=== PATIENT | female | born 1980 | race American Indian/Alaskan Native ===

== ENCOUNTER 2016-09-15 06:15 | Emergency (ER) | payer OTHER ==
[2016-09-15] MEDS ORDERED: TYLENOL ONE (06:18)
[2016-09-15] MEDS ORDERED: TYLENOL PO ONE (06:23)
[2016-09-15 06:56] LABS: Basophils % (Auto) 0.8 % (0.0-1.8); Eosinophils % (Auto) 3.5 % (0.0-4.3); Hematocrit 35.8 % (30.3-42.9); Hemoglobin 11.5 gm/dl (10.1-14.3); Mean Corpuscular HGB Conc 32 % (30-34); Mean Corpuscular Hemoglobin 29 pg (28-32); Mean Corpuscular Volume 91 fl (79-97); Platelet Count 326 K/mm3 (140-440); Red Blood Count 3.93 M/mm3 (3.65-5.03); Red Cell Distribution Width 13.5 % (13.2-15.2); White Blood Count 7.3 K/mm3 (4.5-11.0)
[2016-09-15 07:07] LABS: INR 1.09 (0.87-1.13); Partial Thromboplastin Time 30.5 Sec. (24.2-36.6)
[2016-09-15 07:09] LABS: Anion Gap 16 mmol/L; Blood Urea Nitrogen 12 mg/dL (7-17); Calcium 8.5 mg/dL (8.4-10.2); Carbon Dioxide 23 mmol/L (22-30); Chloride 107.4 mmol/L (98-107); Glucose 100 mg/dL (65-100); Potassium 4.1 mmol/L (3.6-5.0); Sodium 142 mmol/L (137-145)
[2016-09-15] MEDS ORDERED: TORADOL IM ONE (09:49)
--- NOTE | 2016-09-15 09:50 | Emergency Department Report ---
ED Chest Pain HPI - General Chief Complaint: Chest Pain Stated Complaint: CHEST PAIN Time Seen by Provider: 09/15/16 09:39 Source: patient, RN notes reviewed, old records reviewed Mode of arrival: Ambulatory Limitations: No Limitations - History of Present Illness Initial Comments: This is a 36-year-old female. She is previously unknown speed. She reports a past medical history of asthma. She presents to the ER complaining of chest pain. Chest pain is in the left-sided chest wall. It is associated with neck pain. It increases with deep inspiration. There is mild shortness of breath. Patient reports chronic shortness of breath for the past 2 months. No recent trips greater than 4 hours. No recent hospital admissions. There is no leg pain. There is no leg swelling. The chest pain does not radiates to the back, arms, but does involve the neck. There is no cocaine use. MD Complaint: chest pain -: Gradual, days(s), month(s) Pain Location: left chest Pain Radiation: neck Severity: mild Severity scale (0 -10): 4 Quality: aching Consistency: intermittent Improves With: rest Worsens With: palpation re: dyspnea. denies: nausea, vomting, diaphoresis Other Symptoms: denies: cough, fever, syncope, rash, acid taste in mouth, leg swelling, palpitations, burping Treatments Prior to Arrival: none Aspirin use within the Past 7 Days: (0) No - Related Data On Oral Contraceptives: No Previous Rx's Medication Instructions Recorded Last Taken Type Albuterol Sulfate [Proventil HFA] 1 - 2 puff IH Q4H PRN #2 hfa.aer.ad 09/08/14 Unknown Rx Fluticasone/Salmeterol [Advair 1 - 2 puff IH BID #1 disk.w.dev 02/23/15 Unknown Rx Diskus 250-50 mcg] Ciprofloxacin HCl [Ciprofloxacin 500 mg PO Q12HR #14 tab 12/15/15 Unknown Rx TAB] traMADol [Ultram] 50 mg PO Q6HR PRN #14 tablet 12/15/15 Unknown Rx Fluconazole [Diflucan TAB] 150 mg PO ONCE #1 tablet 12/16/15 Unknown Rx LORazepam [Ativan] 1 mg PO Q8HR PRN #6 tablet 03/01/16 Unknown Rx traMADol [Ultram 50 MG tab] 50 mg PO Q6HR PRN #10 tablet 03/01/16 Unknown Rx Acetaminophen/Codeine [Tylenol #3] 1 tab PO Q6H PRN #7 tab 04/03/16 Unknown Rx Cephalexin [Keflex] 500 mg PO Q8HR #21 cap 04/03/16 Unknown Rx Diclofenac Sodium 75 mg PO BID #14 tablet.dr 04/03/16 Unknown Rx Sulfamethoxazole/Trimethoprim 1 each PO BID #14 tablet 04/03/16 Unknown Rx [Bactrim DS TAB] Ketorolac [Toradol] 10 mg PO Q6H PRN #20 tablet 09/15/16 Unknown Rx Allergies Allergy/AdvReac Type Severity Reaction Status Date / Time shellfish derived Allergy Swelling Verified 10/08/15 07:19 CASTRO score - Castro Score Age > 65: (0) No Aspirin use within the Past 7 Days: (0) No 3 or more CAD Risk Factors: (0) No 2 or more Angina events in past 24 hrs: (0) No Known CAD with more than 50% Stenosis: (0) No Elevated Cardiac Markers: (0) No ST Deviation Greater than 0.5mm: (0) No CASTRO Score: 0 ED Review of Systems ROS: Stated complaint: CHEST PAIN Other details as noted in HPI Constitutional: no symptoms reported Eyes: as per HPI ENT: as per HPI Respiratory: see HPI Cardiovascular: chest pain Gastrointestinal: as per HPI Genitourinary: as per HPI Musculoskeletal: as per HPI Skin: as per HPI Neurological: as per HPI Psychiatric: as per HPI Hematological/Lymphatic: as per HPI ED Past Medical Hx - Past Medical History Previous Medical History?: Yes Hx Congestive Heart Failure: No Hx Diabetes: No Hx Asthma: Yes Hx COPD: No - Surgical History Past Surgical History?: Yes Hx Appendectomy: Yes - Social History Smoking Status: Never Smoker Substance Use Type: None - Medications Home Medications: Home Medications Medication Instructions Recorded Confirmed Last Taken Type Albuterol Sulfate [Proventil HFA] 1 - 2 puff IH Q4H PRN #2 hfa.aer.ad 09/08/14 12/15/15 Unknown Rx Fluticasone/Salmeterol [Advair 1 - 2 puff IH BID #1 disk.w.dev 02/23/15 Unknown Rx Diskus 250-50 mcg] Ciprofloxacin HCl [Ciprofloxacin 500 mg PO Q12HR #14 tab 12/15/15 Unknown Rx TAB] traMADol [Ultram] 50 mg PO Q6HR PRN #14 tablet 12/15/15 Unknown Rx Fluconazole [Diflucan TAB] 150 mg PO ONCE #1 tablet 12/16/15 Unknown Rx LORazepam [Ativan] 1 mg PO Q8HR PRN #6 tablet 03/01/16 Unknown Rx traMADol [Ultram 50 MG tab] 50 mg PO Q6HR PRN #10 tablet 03/01/16 Unknown Rx Acetaminophen/Codeine [Tylenol #3] 1 tab PO Q6H PRN #7 tab 04/03/16 Unknown Rx Cephalexin [Keflex] 500 mg PO Q8HR #21 cap 04/03/16 Unknown Rx Diclofenac Sodium 75 mg PO BID #14 tablet.dr 04/03/16 Unknown Rx Sulfamethoxazole/Trimethoprim 1 each PO BID #14 tablet 04/03/16 Unknown Rx [Bactrim DS TAB] Ketorolac [Toradol] 10 mg PO Q6H PRN #20 tablet 09/15/16 Unknown Rx ED Physical Exam - General Limitations: No Limitations General appearance: alert, in no apparent distress - Head Head exam: Present: atraumatic, normocephalic - Eye Eye exam: Present: normal appearance, EOMI. Absent: nystagmus - ENT ENT exam: Present: normal exam, normal orophraynx, mucous membranes moist, normal external ear exam - Neck Neck exam: Present: normal inspection, tenderness, full ROM, other (is reproducible left-sided paracervical tenderness.). Absent: meningismus - Respiratory Respiratory exam: Present: normal lung sounds bilaterally, chest wall tenderness (there is reproducible left-sided chest wall tenderness.), other ( bilateral breast exam is unremarkable. During the breast examination, I am escorted by nurse Melvi Caraballo). Absent: respiratory distress, wheezes, rales , rhonchi, stridor - Cardiovascular Cardiovascular Exam: Present: regular rate, normal rhythm, normal heart sounds. Absent: bradycardia, tachycardia, irregular rhythm, systolic murmur, diastolic murmur, rubs, gallop - GI/Abdominal GI/Abdominal exam: Present: soft, normal bowel sounds. Absent: distended, tenderness, guarding, rebound, rigid, pulsatile mass - Extremities Exam Extremities exam: Present: normal inspection, full ROM, normal capillary refill. Absent: tenderness, pedal edema, joint swelling, calf tenderness - Back Exam Back exam: Present: normal inspection, full ROM. Absent: tenderness, CVA tenderness (R), CVA tenderness (L), muscle spasm, paraspinal tenderness, vertebral tenderness - Neurological Exam Neurological exam: Present: alert, oriented X3, normal gait, other (Extraocular movements intact. Tongue midline. No facial droop. Facial sensation intact to light touch in the V1, V2, V3 distribution bilaterally. 5 and 5 strength in 4 extremities.. Sensation is intact to light touch in 4 extremities.). Absent : motor sensory deficit - Psychiatric Psychiatric exam: Present: normal affect, normal mood - Skin Skin exam: Present: warm, dry, intact, normal color. Absent: rash ED Course Vital Signs 09/15/16 09/15/16 09/15/16 06:18 10:18 11:11 Temperature 97.5 F L Pulse Rate 88 Respiratory 18 18 20 Rate Blood Pressure [Right] O2 Sat by Pulse 100 99 Oximetry 09/15/16 11:37 Temperature 98.3 F Pulse Rate 60 Respiratory 18 Rate Blood Pressure 120/80 [Right] O2 Sat by Pulse 100 Oximetry - Reevaluation(s) Reevaluation #1: 09/15/16 11:29 Differential diagnosis: Costochondritis, pneumonia, pulmonary embolus, acute coronary syndrome Assessment and plan: 36-year-old female with reproducible chest wall pain and tenderness. She is afebrile, with reassuring vital signs, noted multiple times to be texturing and playing on a cellular phone. She has no pulmonary embolus or DVT risk factors, she is low risk by well's criteria, she is perc negative, she is low risk by heart score, low risk by CASTRO score. Troponin is negative, d -dimer negative, EKG unremarkable, appears essentially unchanged when compared to prior EKG. patient to follow up with an outpatient [employer] on 09/18, 1: 30 PM, with Dr. Haywood, and the [place] office. this was arranged by Ellyn Fowler Given constellation of vital signs, EKG, physical examination, and risk factor analysis, patient's is at low risk for major adverse cardiac event. ED Medical Decision Making - Lab Data Result diagrams: 09/15/16 06:38 09/15/16 06:38 Vital Signs 09/15/16 09/15/1617 06:18 10:18 11:11 Temperature 97.5 F L Pulse Rate 88 Respiratory 18 18 20 Rate O2 Sat by Pulse 100 99 Oximetry Vital Signs 09/15/16 09/15/16 09/15/16 06:18 10:18 11:11 Temperature 97.5 F L Pulse Rate 88 Respiratory 18 18 20 Rate O2 Sat by Pulse 100 99 Oximetry Labs 09/15/16 09/15/16 09/15/16 06:38 06:38 06:38 WBC 7.3 RBC 3.93 Hgb 11.5 Hct 35.8 MCV 91 MCH 29 MCHC 32 RDW 13.5 Plt Count 326 Lymph % (Auto) 40.4 H Tate % (Auto) 6.2 Eos % (Auto) 3.5 Baso % (Auto) 0.8 Lymph # 2.9 Tate # 0.4 Eos # 0.3 Baso # 0.1 Seg Neutrophils % 49.1 Seg Neutrophils # 3.6 PT 14.0 INR 1.09 APTT 30.5 D-Dimer Carbon Dioxide 23 BUN 12 Creatinine 0.6 L Estimated GFR > 60 BUN/Creatinine Ratio 20.00 Glucose 100 Calcium 8.5 Troponin T < 0.010 HCG, Qual 09/15/16 09/15/16 09/15/16 06:38 10:00 10:00 WBC RBC Hgb Hct MCV MCH MCHC RDW Plt Count Lymph % (Auto) Tate % (Auto) Eos % (Auto) Baso % (Auto) Lymph # Tate # Eos # Baso # Seg Neutrophils % Seg Neutrophils # PT 13.9 INR 1.08 APTT 33.2 D-Dimer < 135.00 Carbon Dioxide BUN Creatinine Estimated GFR BUN/Creatinine Ratio Glucose Calcium Troponin T < 0.010 HCG, Qual Negative - EKG Data EKG shows normal: sinus rhythm Rate: normal - EKG Data 09/15/16 11:28 normal sinus, 79 bpm, normal axis, normal intervals, not morphologically consistent with STEMI, unchanged when compared to prior EKG from 09/15/2016 - Radiology Data Radiology results: report reviewed, image reviewed X-ray the chest is negative for acute disease Critical care attestation.: If time is entered above; I have spent that time in minutes in the direct care of this critically ill patient, excluding procedure time. ED Disposition Clinical Impression: Chest wall pain Disposition: DISCHARGED TO HOME OR SELFCARE Is pt being admited?: No Does the pt Need Aspirin: No Condition: Stable Instructions: Chest Pain (ED), Costochondritis (ED) Additional Instructions: Take the pain medication as directed. Follow up with cardiology, this Wednesday, , 1:30 PM, at the [facility]. Return to the ER right away with new pain, worsened pain, migration of pain, fevers or chills, intractable nausea or vomiting, inability to tolerate liquid feeds, new, worse or different symptoms. Prescriptions: Ketorolac [Toradol] 10 mg PO Q6H PRN #20 tablet PRN Reason: Pain Referrals: PRIMARY CARE, [Primary Care Provider] - 3-5 Days DAWOOD WEST MD [Staff Physician] - 3-5 Days
[2016-09-15] MEDS ORDERED: TORADOL ONE (10:12)
--- NOTE | 2016-09-15 10:18 | XRay Report ---
ROUTINE CHEST, TWO VIEWS: HISTORY: chest pain. The trachea, heart, mediastinal contour, lung castillo and bony thorax are unremarkable. IMPRESSION: Unremarkable chest x-ray. No change since 03/01/16.
[2016-09-15 10:41] LABS: INR 1.08 (0.87-1.13)
[2016-09-15 10:42] LABS: Partial Thromboplastin Time 33.2 Sec. (24.2-36.6)
[2016-09-15 11:38] VITALS: BP 120/80
== END 2016-09-15 12:05 | disposition home or self-care (01) ==
LOC: ED 06:15
DX: R07.89 Other chest pain (principal); J45.909 Unspecified asthma, uncomplicated; Z91.013 Allergy to seafood
CPT/HCPCS: 36415; 71020; 80048; 84484; 84703; 85025; 85379; 85610; 85730; 93005; 93010; 96372; 99285; J1885

== ENCOUNTER 2017-02-24 01:40 | Emergency (ER) | payer BC ==
[2017-02-24 01:46] VITALS: BP 122/80
[2017-02-24 03:03] LABS: Bilirubin,Urine NEG (Negative); Blood,Urine NEG (Negative); Ketones,Urine NEG (Negative); Leukocyte Esterase,Urine TR (Negative); Mucus,Urine FEW /HPF; Nitrite,Urine NEG (Negative); Protein,Urine <15 mg/dL mg/dL (Negative); RBC,Urine < 1.0 /HPF (0.0-6.0); Urobilinogen,Urine < 2.0 mg/dL (<2.0)
[2017-02-24] MEDS ORDERED: NORCO 7.5/325 PO ONE (05:10)
[2017-02-24] MEDS ORDERED: FLEXERIL PO ONE (05:10)
[2017-02-24] MEDS ORDERED: TORADOL IM ONE (05:10)
[2017-02-24 05:32] LABS: Basophils % (Auto) 0.9 % (0.0-1.8); Eosinophils % (Auto) 2.7 % (0.0-4.3); Hematocrit 32.6 % (30.3-42.9); Hemoglobin 11.1 gm/dl (10.1-14.3); Mean Corpuscular HGB Conc 34 % (30-34); Mean Corpuscular Hemoglobin 31 pg (28-32); Mean Corpuscular Volume 90 fl (79-97); Platelet Count 267 K/mm3 (140-440); Red Blood Count 3.61 M/mm3 (3.65-5.03); Red Cell Distribution Width 14.2 % (13.2-15.2); White Blood Count 8.8 K/mm3 (4.5-11.0)
[2017-02-24 05:43] LABS: BUN/Creatinine Ratio 21.66; Blood Urea Nitrogen 13 mg/dL (7-17); Calcium 8.8 mg/dL (8.4-10.2); Carbon Dioxide 23 mmol/L (22-30); Glucose 103 mg/dL (65-100); Potassium 3.9 mmol/L (3.6-5.0); Sodium 139 mmol/L (137-145)
[2017-02-24 05:44] LABS: Anion Gap 17 mmol/L; Chloride 102.5 mmol/L (98-107)
--- NOTE | 2017-02-24 06:43 | Cat Scan Report ---
FINAL REPORT EXAM: CT ABDOMEN PELVIS WO CON HISTORY: flank pain TECHNIQUE: Noncontrast CT of the abdomen and pelvis performed. No IV or gastrointestinal contrast was administered. PRIORS: 12/15/2015 FINDINGS: There are no renal stones, ureteral stones, hydronephrosis, or evidence of obstructive uropathy. Within the limitations of a non-enhanced study, the visualized liver, spleen, pancreas, adrenal glands and kidneys demonstrate no significant abnormalities. There is no abdominal aortic aneurysm. There is no evidence of intestinal obstruction. The appendix is not specifically identified. There is no free intraperitoneal air. There is a 4.1 x 3.9 cm right adnexal cystic mass. Suggest further evaluation with pelvic ultrasound. The bladder is unremarkable. IMPRESSION: 4.1 x 3.9 cm right adnexal cystic mass seen. Recommend pelvic ultrasound correlation. There is no nephrolithiasis, hydronephrosis or other evidence for acute obstructive uropathy.
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
--- NOTE | 2017-02-24 07:15 | Emergency Department Report ---
ED Back Pain/Injury HPI - General Chief Complaint: Back Pain/Injury Stated Complaint: BACK PAIN Source: patient Limitations: No Limitations - Related Data Previous Rx's Medication Instructions Recorded Last Taken Type Albuterol Sulfate [Proventil HFA] 1 - 2 puff IH Q4H PRN #2 hfa.aer.ad 09/08/14 Unknown Rx Fluticasone/Salmeterol [Advair 1 - 2 puff IH BID #1 disk.w.dev 02/23/15 Unknown Rx Diskus 250-50 mcg] Ciprofloxacin HCl [Ciprofloxacin 500 mg PO Q12HR #14 tab 12/15/15 Unknown Rx TAB] traMADol [Ultram] 50 mg PO Q6HR PRN #14 tablet 12/15/15 Unknown Rx Fluconazole [Diflucan TAB] 150 mg PO ONCE #1 tablet 12/16/15 Unknown Rx LORazepam [Ativan] 1 mg PO Q8HR PRN #6 tablet 03/01/16 Unknown Rx traMADol [Ultram 50 MG tab] 50 mg PO Q6HR PRN #10 tablet 03/01/16 Unknown Rx Acetaminophen/Codeine [Tylenol #3] 1 tab PO Q6H PRN #7 tab 04/03/16 Unknown Rx Cephalexin [Keflex] 500 mg PO Q8HR #21 cap 04/03/16 Unknown Rx Diclofenac Sodium 75 mg PO BID #14 tablet.dr 04/03/16 Unknown Rx Sulfamethoxazole/Trimethoprim 1 each PO BID #14 tablet 04/03/16 Unknown Rx [Bactrim DS TAB] Ketorolac [Toradol] 10 mg PO Q6H PRN #20 tablet 09/15/16 Unknown Rx Meloxicam [Mobic] 7.5 mg PO QDAY #5 tablet 02/24/17 Unknown Rx methOCARBAMOL [Robaxin TAB] 500 mg PO TID #15 tab 02/24/17 Unknown Rx Allergies Allergy/AdvReac Type Severity Reaction Status Date / Time shellfish derived Allergy Swelling Verified 10/08/15 07:19 ED Review of Systems ROS: Stated complaint: BACK PAIN Other details as noted in HPI ED Past Medical Hx - Past Medical History Previous Medical History?: Yes Hx Congestive Heart Failure: No Hx Diabetes: No Hx Asthma: Yes Hx COPD: No - Surgical History Past Surgical History?: Yes Hx Appendectomy: Yes - Social History Smoking Status: Current Every Day Smoker Substance Use Type: None - Medications Home Medications: Home Medications Medication Instructions Recorded Confirmed Last Taken Type Albuterol Sulfate [Proventil HFA] 1 - 2 puff IH Q4H PRN #2 hfa.aer.ad 09/08/14 12/15/15 Unknown Rx Fluticasone/Salmeterol [Advair 1 - 2 puff IH BID #1 disk.w.dev 02/23/15 Unknown Rx Diskus 250-50 mcg] Ciprofloxacin HCl [Ciprofloxacin 500 mg PO Q12HR #14 tab 12/15/15 Unknown Rx TAB] traMADol [Ultram] 50 mg PO Q6HR PRN #14 tablet 12/15/15 Unknown Rx Fluconazole [Diflucan TAB] 150 mg PO ONCE #1 tablet 12/16/15 Unknown Rx LORazepam [Ativan] 1 mg PO Q8HR PRN #6 tablet 03/01/16 Unknown Rx traMADol [Ultram 50 MG tab] 50 mg PO Q6HR PRN #10 tablet 03/01/16 Unknown Rx Acetaminophen/Codeine [Tylenol #3] 1 tab PO Q6H PRN #7 tab 04/03/16 Unknown Rx Cephalexin [Keflex] 500 mg PO Q8HR #21 cap 04/03/16 Unknown Rx Diclofenac Sodium 75 mg PO BID #14 tablet.dr 04/03/16 Unknown Rx Sulfamethoxazole/Trimethoprim 1 each PO BID #14 tablet 04/03/16 Unknown Rx [Bactrim DS TAB] Ketorolac [Toradol] 10 mg PO Q6H PRN #20 tablet 09/15/16 Unknown Rx Meloxicam [Mobic] 7.5 mg PO QDAY #5 tablet 02/24/17 Unknown Rx methOCARBAMOL [Robaxin TAB] 500 mg PO TID #15 tab 02/24/17 Unknown Rx ED Physical Exam - General Limitations: No Limitations ED Course Vital Signs 02/24/17 02/24/17 01:43 02:16 Temperature 98.6 F 98.6 F Pulse Rate 90 93 H Respiratory 20 18 Rate Blood Pressure 122/80 Blood Pressure 122/80 [Right] O2 Sat by Pulse 100 100 Oximetry ED Medical Decision Making - Lab Data Result diagrams: 02/24/17 05:19 02/24/17 05:19 Critical care attestation.: If time is entered above; I have spent that time in minutes in the direct care of this critically ill patient, excluding procedure time. ED Disposition Disposition: DC-01 TO HOME OR SELFCARE Condition: Stable Instructions: Flank Pain (ED) Prescriptions: Meloxicam [Mobic] 7.5 mg PO QDAY #5 tablet methOCARBAMOL [Robaxin TAB] 500 mg PO TID #15 tab Referrals: PRIMARY CARE, [Primary Care Provider] - 3-5 Days Forms: Work/School Release Form(ED)
== END 2017-02-24 07:11 | disposition home or self-care (01) ==
LOC: ED 01:40
DX: M54.9 Dorsalgia, unspecified (principal); J45.909 Unspecified asthma, uncomplicated; F17.200 Nicotine dependence, unspecified, uncomplicated; Z91.013 Allergy to seafood; X58.XXXA Exposure to other specified factors, initial encounter; Y93.89 Activity, other specified; Y92.89 Other specified places as the place of occurrence of the external cause; Y99.8 Other external cause status
CPT/HCPCS: 36415; 74176; 80048; 81001; 81025; 85025; 96372; 99284; J1885

== ENCOUNTER 2017-07-24 16:08 | Emergency (ER) | payer BC ==
[2017-07-24 16:17] VITALS: BP 126/77
== END 2017-07-24 21:14 | disposition left against medical advice (07) ==
LOC: ED 16:08
DX: Z53.21 Procedure and treatment not carried out due to patient leaving prior to being seen by health care provider (principal)

== ENCOUNTER 2017-11-01 19:53 | Emergency (ER) | payer BC ==
[2017-11-01 20:08] VITALS: BP 124/71
[2017-11-01] MEDS ORDERED: DELTASONE PO ONE (22:34)
[2017-11-01] MEDS ORDERED: PROVENTIL IH ONE (22:34)
--- NOTE | 2017-11-01 23:04 | XRay Report ---
FINAL REPORT EXAM: XR CHEST ROUTINE 2V HISTORY: sob TECHNIQUE: Two view chest PA and lateral PRIORS: None. FINDINGS: Cardiac and mediastinal contours are unremarkable. No focal pulmonary infiltrate is identified. No pleural fluid collection seen. Pulmonary vasculature is unremarkable. IMPRESSION: Negative two-view chest
--- NOTE | 2017-11-01 23:12 | Emergency Department Report ---
Upper Respiratory HPI - HPI Chief Complaint: Adult Asthma Stated Complaint: ASTHMA Time Seen by Provider: 11/01/17 22:30 Duration: 3 Days URI Symptoms: Rhinorrhea: Yes, Sore Throat: No, Ear Pain: No, Cough: Yes, Shortness of Breath: Yes, Sick Contacts: Yes, Unable to Take Fluids: No, Urine Output Abnormal: No, Listless Behavior: No - Home Meds and Allergies Home Medications: Previous Rx's Medication Instructions Recorded Last Taken Type Albuterol Sulfate [Proventil HFA] 1 - 2 puff IH Q4H PRN #2 hfa.aer.ad 09/08/14 Unknown Rx Fluticasone/Salmeterol [Advair 1 - 2 puff IH BID #1 disk.w.dev 02/23/15 Unknown Rx Diskus 250-50 mcg] Ciprofloxacin HCl [Ciprofloxacin 500 mg PO Q12HR #14 tab 12/15/15 Unknown Rx TAB] traMADol [Ultram] 50 mg PO Q6HR PRN #14 tablet 12/15/15 Unknown Rx Fluconazole [Diflucan TAB] 150 mg PO ONCE #1 tablet 12/16/15 Unknown Rx LORazepam [Ativan] 1 mg PO Q8HR PRN #6 tablet 03/01/16 Unknown Rx traMADol [Ultram 50 MG tab] 50 mg PO Q6HR PRN #10 tablet 03/01/16 Unknown Rx Acetaminophen/Codeine [Tylenol #3] 1 tab PO Q6H PRN #7 tab 04/03/16 Unknown Rx Cephalexin [Keflex] 500 mg PO Q8HR #21 cap 04/03/16 Unknown Rx Diclofenac Sodium 75 mg PO BID #14 tablet.dr 04/03/16 Unknown Rx Sulfamethoxazole/Trimethoprim 1 each PO BID #14 tablet 04/03/16 Unknown Rx [Bactrim DS TAB] Ketorolac [Toradol] 10 mg PO Q6H PRN #20 tablet 09/15/16 Unknown Rx Meloxicam [Mobic] 7.5 mg PO QDAY #5 tablet 02/24/17 Unknown Rx methOCARBAMOL [Robaxin TAB] 500 mg PO TID #15 tab 02/24/17 Unknown Rx ALBUTEROL Inhaler [ProAir HFA 2 puff IH QID PRN #1 inhalation 11/01/17 Unknown Rx Inhaler] Azithromycin [Zithromax Z-HAILY] 250 mg PO DAILY #6 tab 11/01/17 Unknown Rx Benzonatate [Tessalon Perles] 100 mg PO Q8HR PRN #30 capsule 11/01/17 Unknown Rx predniSONE [Deltasone] 40 mg PO QDAY 5 Days #10 tab 11/01/17 Unknown Rx Allergies/Adverse Reactions: Allergies Allergy/AdvReac Type Severity Reaction Status Date / Time shellfish derived Allergy Swelling Verified 10/08/15 07:19 ED Review of Systems ROS: Stated complaint: ASTHMA Other details as noted in HPI Constitutional: denies: chills, fever Eyes: denies: eye pain, eye discharge, vision change ENT: congestion Respiratory: cough, wheezing Cardiovascular: denies: chest pain, palpitations Endocrine: no symptoms reported Gastrointestinal: denies: abdominal pain, nausea, diarrhea Genitourinary: denies: urgency, dysuria, discharge Musculoskeletal: denies: back pain, joint swelling, arthralgia Skin: denies: rash, lesions Neurological: denies: headache, weakness, paresthesias Psychiatric: denies: anxiety, depression Hematological/Lymphatic: denies: easy bleeding, easy bruising ED Past Medical Hx - Past Medical History Hx Congestive Heart Failure: No Hx Diabetes: No Hx Asthma: Yes Hx COPD: No - Surgical History Hx Appendectomy: Yes - Social History Smoking Status: Current Some Day Smoker Substance Use Type: None - Medications Home Medications: Home Medications Medication Instructions Recorded Confirmed Last Taken Type Albuterol Sulfate [Proventil HFA] 1 - 2 puff IH Q4H PRN #2 hfa.aer.ad 09/08/14 12/15/15 Unknown Rx Fluticasone/Salmeterol [Advair 1 - 2 puff IH BID #1 disk.w.dev 02/23/15 Unknown Rx Diskus 250-50 mcg] Ciprofloxacin HCl [Ciprofloxacin 500 mg PO Q12HR #14 tab 12/15/15 Unknown Rx TAB] traMADol [Ultram] 50 mg PO Q6HR PRN #14 tablet 12/15/15 Unknown Rx Fluconazole [Diflucan TAB] 150 mg PO ONCE #1 tablet 12/16/15 Unknown Rx LORazepam [Ativan] 1 mg PO Q8HR PRN #6 tablet 03/01/16 Unknown Rx traMADol [Ultram 50 MG tab] 50 mg PO Q6HR PRN #10 tablet 03/01/16 Unknown Rx Acetaminophen/Codeine [Tylenol #3] 1 tab PO Q6H PRN #7 tab 04/03/16 Unknown Rx Cephalexin [Keflex] 500 mg PO Q8HR #21 cap 04/03/16 Unknown Rx Diclofenac Sodium 75 mg PO BID #14 tablet. 04/03/16 Unknown Rx Sulfamethoxazole/Trimethoprim 1 each PO BID #14 tablet 04/03/16 Unknown Rx [Bactrim DS TAB] Ketorolac [Toradol] 10 mg PO Q6H PRN #20 tablet 09/15/16 Unknown Rx Meloxicam [Mobic] 7.5 mg PO QDAY #5 tablet 02/24/17 Unknown Rx methOCARBAMOL [Robaxin TAB] 500 mg PO TID #15 tab 02/24/17 Unknown Rx ALBUTEROL Inhaler [ProAir HFA 2 puff IH QID PRN #1 inhalation 11/01/17 Unknown Rx Inhaler] Azithromycin [Zithromax Z-HAILY] 250 mg PO DAILY #6 tab 11/01/17 Unknown Rx Benzonatate [Tessalon Perles] 100 mg PO Q8HR PRN #30 capsule 11/01/17 Unknown Rx predniSONE [Deltasone] 40 mg PO QDAY 5 Days #10 tab 11/01/17 Unknown Rx ED Bronchiolitis Physical Exam - Exam General: Vital signs noted. No distress. Alert and acting appropriately. HEENT: Yes Rhinorrhea, No Pharyngeal Erythema, No Conjuctival Injection, No Dry Mucous Membranes Ear: Neither TM Bulge, Neither TM Erythema, Neither EAC Discharge Neck: No Adenopathy, No Rigidity Lungs: Yes Good Air Exchange, Yes Wheezes, Yes Cough, No Clear Lung Sounds, No Stridor, No Nasal Flaring, No Retractions, No Use of Accessory Muscles Heart: Yes Regular, No Murmur Abdomen: Yes Normal Bowel Sounds, No Tenderness, No Peritoneal Signs Skin: No Rash, No Eczema Neurologic: Alert and oriented, no deficits. Musculoskeletal: Unremarkable. ED Bronchiolitis Tests - Testing Testing: CXR: Normal/Negative Treatments - Treaments Treatment: Improved Albuterol ED Physical Exam - General Limitations: No Limitations General appearance: alert, in no apparent distress - Head Head exam: Present: atraumatic, normocephalic - Eye Eye exam: Present: normal appearance, PERRL, EOMI - ENT ENT exam: Present: normal orophraynx, mucous membranes moist, TM's normal bilaterally - Neck Neck exam: Present: normal inspection, full ROM. Absent: tenderness, lymphadenopathy, thyromegaly - Respiratory Respiratory exam: Present: normal lung sounds bilaterally, decreased breath sounds. Absent: respiratory distress, wheezes, chest wall tenderness - Cardiovascular Cardiovascular Exam: Present: regular rate, normal heart sounds - GI/Abdominal GI/Abdominal exam: Present: soft, normal bowel sounds. Absent: distended, tenderness, guarding, rebound, rigid, hypoactive bowel sounds, organomegaly, mass, bruit, pulsatile mass, hernia - Rectal Rectal exam: Present: deferred - Extremities Exam Extremities exam: Present: normal inspection, full ROM, normal capillary refill - Back Exam Back exam: Present: normal inspection. Absent: CVA tenderness (R), CVA tenderness (L) - Neurological Exam Neurological exam: Present: alert, oriented X3, CN II-XII intact, normal gait - Psychiatric Psychiatric exam: Present: normal affect, normal mood - Skin Skin exam: Present: warm, dry, intact, normal color. 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 ED Disposition Clinical Impression: Bronchitis Disposition: DC-01 TO HOME OR SELFCARE Is pt being admited?: No Does the pt Need Aspirin: No Condition: Stable Instructions: Acute Bronchitis (ED) Prescriptions: ALBUTEROL Inhaler [ProAir HFA Inhaler] 2 puff IH QID PRN #1 inhalation PRN Reason: Shortness Of Breath Azithromycin [Zithromax Z-HAILY] 250 mg PO DAILY #6 tab Benzonatate [Tessalon Perles] 100 mg PO Q8HR PRN #30 capsule PRN Reason: Cough predniSONE [Deltasone] 40 mg PO QDAY 5 Days #10 tab Referrals: PRIMARY CARE, [Primary Care Provider] - 3-5 Days Forms: Work/School Release Form(ED) Time of Disposition: 23:14
== END 2017-11-01 23:50 | disposition home or self-care (01) ==
LOC: ED 19:53
DX: J40 Bronchitis, not specified as acute or chronic (principal); F17.200 Nicotine dependence, unspecified, uncomplicated; Z91.013 Allergy to seafood
CPT/HCPCS: 71046; 99283; J7512

== ENCOUNTER 2018-01-20 18:01 | Emergency (ER) | payer BC ==
[2018-01-20] MEDS ORDERED: ASPIRIN PO ONE (18:14)
[2018-01-20 18:44] LABS: Basophils # (Auto) 0.1 K/mm3 (0.0-0.1); Basophils % (Auto) 0.6 % (0.0-1.8); Eosinophils # (Auto) 0.1 K/mm3 (0.0-0.4); Eosinophils % (Auto) 1.6 % (0.0-4.3); Hematocrit 34.6 % (30.3-42.9); Hemoglobin 11.4 gm/dl (10.1-14.3); Lymphocytes # (Auto) 2.9 K/mm3 (1.2-5.4); Lymphocytes % (Auto) 31.1 % (13.4-35.0); Mean Corpuscular HGB Conc 33 % (30-34); Mean Corpuscular Hemoglobin 31 pg (28-32); Mean Corpuscular Volume 93 fl (79-97); Monocytes # (Auto) 0.5 K/mm3 (0.0-0.8); Monocytes % (Auto) 5.9 % (0.0-7.3); Platelet Count 329 K/mm3 (140-440); Red Blood Count 3.74 M/mm3 (3.65-5.03); Red Cell Distribution Width 13.9 % (13.2-15.2)
[2018-01-20 20:03] LABS: BUN/Creatinine Ratio 15; Blood Urea Nitrogen 9 mg/dL (7-17); Calcium 9.2 mg/dL (8.4-10.2); Hemolysis Index 7
[2018-01-20] MEDS ORDERED: TORADOL IV ONE (23:39)
--- NOTE | 2018-01-21 00:09 | XRay Report ---
FINAL REPORT EXAM: XR CHEST 1V AP HISTORY: chest pain TECHNIQUE: A portable upright view of the chest was submitted and compared to the study of 11/01/2017. FINDINGS: The heart size and vascularity appear normal. The lungs are clear. Pleural fluid is not seen. The bones and soft tissues are well maintained. IMPRESSION: No acute cardiopulmonary process.
[2018-01-21 00:14] LABS: INR 1.01 (0.87-1.13)
[2018-01-21 00:15] LABS: Partial Thromboplastin Time 30.3 Sec. (24.2-36.6)
--- NOTE | 2018-01-21 01:00 | Emergency Department Report ---
HPI - General Chief Complaint: Chest Pain Time Seen by Provider: 01/20/18 23:17 - HPI HPI: The patient is a 37-year-old female who presents for evaluation of chest pain and back pain. The patient was right-sided chest pain for the past 3 days, radiating to the back, sharp in quality, exacerbated with deep breaths, moderate in severity. The patient denies fever, neck pain, parasthesias, dyspnea , cough, hemoptysis, palpitations, dizziness, syncope, unilateral leg swelling, calf muscle pain. Patient also denies cocaine or other stimulant use, history of DVT or PE, recent immobilization, or history of cancer. ED Past Medical Hx - Past Medical History Previous Medical History?: Yes Hx Congestive Heart Failure: No Hx Diabetes: No Hx Asthma: Yes Hx COPD: No - Surgical History Past Surgical History?: Yes Hx Appendectomy: Yes - Social History Smoking Status: Never Smoker - Medications Home Medications: Home Medications Medication Instructions Recorded Confirmed Last Taken Type Albuterol Sulfate [Proventil HFA] 1 - 2 puff IH Q4H PRN #2 hfa.aer.ad 09/08/14 12/15/15 Unknown Rx Fluticasone/Salmeterol [Advair 1 - 2 puff IH BID #1 disk.w.dev 02/23/15 Unknown Rx Diskus 250-50 mcg] Ciprofloxacin HCl [Ciprofloxacin 500 mg PO Q12HR #14 tab 12/15/15 Unknown Rx TAB] traMADol [Ultram] 50 mg PO Q6HR PRN #14 tablet 12/15/15 Unknown Rx Fluconazole [Diflucan TAB] 150 mg PO ONCE #1 tablet 12/16/15 Unknown Rx LORazepam [Ativan] 1 mg PO Q8HR PRN #6 tablet 03/01/16 Unknown Rx traMADol [Ultram 50 MG tab] 50 mg PO Q6HR PRN #10 tablet 03/01/16 Unknown Rx Acetaminophen/Codeine [Tylenol #3] 1 tab PO Q6H PRN #7 tab 04/03/16 Unknown Rx Cephalexin [Keflex] 500 mg PO Q8HR #21 cap 04/03/16 Unknown Rx Diclofenac Sodium 75 mg PO BID #14 tablet.dr 04/03/16 Unknown Rx Sulfamethoxazole/Trimethoprim 1 each PO BID #14 tablet 04/03/16 Unknown Rx [Bactrim DS TAB] Ketorolac [Toradol] 10 mg PO Q6H PRN #20 tablet 09/15/16 Unknown Rx Meloxicam [Mobic] 7.5 mg PO QDAY #5 tablet 02/24/17 Unknown Rx methOCARBAMOL [Robaxin TAB] 500 mg PO TID #15 tab 02/24/17 Unknown Rx ALBUTEROL Inhaler [ProAir HFA 2 puff IH QID PRN #1 inhalation 11/01/17 Unknown Rx Inhaler] Azithromycin [Zithromax Z-HAILY] 250 mg PO DAILY #6 tab 11/01/17 Unknown Rx Benzonatate [Tessalon Perles] 100 mg PO Q8HR PRN #30 capsule 11/01/17 Unknown Rx predniSONE [Deltasone] 40 mg PO QDAY 5 Days #10 tab 11/01/17 Unknown Rx Ibuprofen [Motrin] 800 mg PO Q8HR PRN #15 tablet 01/21/18 Unknown Rx traMADol [Ultram 50 MG tab] 50 mg PO Q6HR PRN #15 tablet 01/21/18 Unknown Rx ED Review of Systems ROS: Stated complaint: CHEST PAIN Other details as noted in HPI Constitutional: denies: fever ENT: denies: throat or neck pain Respiratory: denies: cough, shortness of breath Cardiovascular: reports: chest pain Endocrine: denies unexplained weight loss or gain Gastrointestinal: denies: abdominal pain, nausea Genitourinary: denies: dysuria Musculoskeletal: denies: leg swelling Skin: denies: rash Neurological: denies: headache Hematological/Lymphatic: denies: easy bleeding or easy bruising Psych: denies sadness or hopelessness Physical Exam - Physical Exam Vital Signs: Vital Signs 01/20/18 01/20/18 18:11 23:37 Temperature 98.7 F 97.6 F Pulse Rate 77 62 Respiratory 16 14 Rate Blood Pressure 124/83 Blood Pressure 117/81 [Right] O2 Sat by Pulse 100 100 Oximetry Physical Exam: General: well-nourished, well-developed, no acute distress Head: Normocephalic, atraumatic Eyes: normal sclera ENT: Mucous membranes are pink and moist Neck: trachea midline, neck supple, No neck stiffness, no cervical adenopathy Respiratory: Breath sounds equal bilaterally, no wheezing, rales, or rhonchi Cardio: S1 and S2 present, no murmurs, rubs, gallops, capillary refill is brisk Abdomen: Normoactive bowel sounds, soft abdomen, no rigidity, no guarding or rebound tenderness Chest WALL/Back: No tenderness to palpation of the chest wall, no CVA tenderness with percussion Musc: No pitting edema Skin: No rash Neuro: no facial drooping, normal speech Psych: Normal affect ED Course Vital Signs 01/20/18 01/20/18 18:11 23:37 Temperature 98.7 F 97.6 F Pulse Rate 77 62 Respiratory 16 14 Rate Blood Pressure 124/83 Blood Pressure 117/81 [Right] O2 Sat by Pulse 100 100 Oximetry ED Medical Decision Making - Lab Data Result diagrams: 01/20/18 18:28 01/20/18 18:28 - Medical Decision Making The patient was seen and examined by myself. 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 On initial evaluation, the patient was found to be in no distress. EKG was negative for findings suggestive of acute cardiac infarct. Labs and imaging are obtained. Chest x-ray is negative for pneumothorax, focal consolidation, pulmonary vascular congestion, pleural effusion, or other obvious acute cardiopulmonary disease process. Lab results were non-concerning including levels of troponin, WBC, hemoglobin, hematocrit, electrolytes, renal function. CT angiogram of the chest is negative for acute pulmonary embolus.. The patient was reevaluated and reported that their symptoms were markedly improved. As the patient has a MARIA DEL ROSARIO risk score less than 2, and a well's score less than 2, the patient is at low risk of ACS or pulmonary emboli etiology of their symptoms. The patient is stable for discharge with outpatient follow-up. The patient is given follow-up and return instructions. The patient expressed understanding and agreed with the plan. The patient is discharged in stable condition. Critical care attestation.: If time is entered above; I have spent that time in minutes in the direct care of this critically ill patient, excluding procedure time. ED Disposition Clinical Impression: Acute chest pain Disposition: TO HOME OR SELFCARE Is pt being admited?: No Does the pt Need Aspirin: No Condition: Stable Instructions: Chest Pain (ED), Costochondritis (ED) Referrals: PRIMARY CAREMD [Primary Care Provider] - 3-5 Days [facility] [Outside] - 3-5 Days Time of Disposition: 00:58
[2018-01-21] MEDS ORDERED: MORPHINE IV ONE (01:20)
[2018-01-21] MEDS ORDERED: MORPHINE ONE (01:25)
--- NOTE | 2018-01-21 01:56 | Cat Scan Report ---
FINAL REPORT PROCEDURE: CT ANGIO CHEST TECHNIQUE: Computerized tomographic angiography of the chest was performed after the IV injection of iodinated nonionic contrast including image processing. The image data was postprocessed using 2-dimensional multiplanar reformatted (MPR) and 3-dimensional (MIP and/or volume rendered) techniques. HISTORY: chest pain COMPARISON: No prior studies are available for comparison. FINDINGS: Heart and pericardium: Normal. Thoracic aorta: Normal. Pulmonary vasculature: There is no evidence of pulmonary arterial emboli.. Lymph nodes: No enlarged thoracic lymph nodes. Lungs: The lungs are clear without infiltrate, effusion or pneumothorax. The central airway is patent.. Pleural space: No effusion, thickening, or pneumothorax. Musculoskeletal structures: No significant abnormality. Upper abdominal structures: No significant abnormality. IMPRESSION: There is no evidence of pulmonary arterial emboli. The lungs are clear without infiltrate, effusion or pneumothorax.
[2018-01-21 01:58] VITALS: BP 128/85
== END 2018-01-21 02:14 | disposition home or self-care (01) ==
LOC: ED 18:01
DX: R07.89 Other chest pain (principal); J45.909 Unspecified asthma, uncomplicated; Z90.49 Acquired absence of other specified parts of digestive tract
CPT/HCPCS: 36415; 71045; 71275; 80048; 84484; 84703; 85025; 85379; 85610; 85730; 93005; 93010; 96374; 96375; 99285; J1885; J2270; Q9967

== ENCOUNTER 2018-12-31 19:19 | Emergency (ER) | payer BC ==
[2018-12-31] MEDS ORDERED: DILAUDID IV ONE (19:57)
--- NOTE | 2018-12-31 19:59 | Emergency Department Report ---
ED Lower Extremity HPI - General Chief Complaint: Extremity Injury, Lower Stated Complaint: R KNEE PAIN Time Seen by Provider: 12/31/18 19:57 Source: patient, EMS Mode of arrival: Stretcher Limitations: No Limitations - History of Present Illness Initial Comments: Patient is a 38-year-old female that presents via EMS to the ER for right knee pain. Patient states she fell and hit her knee on the floor at home. Patient states she heard a pop. Patient states 7 difficulty walking and bearing weight. The patient states the pain is extreme. Patient states difficult to move her knee. MD Complaint: knee injury -: Sudden Injury: Knee: Right Place: home Severity: severe Severity scale (0 -10): 10 Improves With: immobilization, rest Worsens With: weight bearing, movement, palpation Context: fall, walking Associated Symptoms: snap/pop sensation, unable to bear weight. denies: swelling, numbness, tingling, ambulatory - Related Data Previous Rx's Medication Instructions Recorded Last Taken Type Albuterol Sulfate [Proventil HFA] 1 - 2 puff IH Q4H PRN #2 hfa.aer.ad 09/08/14 Unknown Rx Fluticasone/Salmeterol [Advair 1 - 2 puff IH BID #1 disk.w.dev 02/23/15 Unknown Rx Diskus 250-50 mcg] Ciprofloxacin HCl [Ciprofloxacin 500 mg PO Q12HR #14 tab 12/15/15 Unknown Rx TAB] traMADol [Ultram] 50 mg PO Q6HR PRN #14 tablet 12/15/15 Unknown Rx Fluconazole [Diflucan TAB] 150 mg PO ONCE #1 tablet 12/16/15 Unknown Rx LORazepam [Ativan] 1 mg PO Q8HR PRN #6 tablet 03/01/16 Unknown Rx traMADol [Ultram 50 MG tab] 50 mg PO Q6HR PRN #10 tablet 03/01/16 Unknown Rx Acetaminophen/Codeine [Tylenol #3] 1 tab PO Q6H PRN #7 tab 04/03/16 Unknown Rx Diclofenac Sodium 75 mg PO BID #14 tablet.dr 04/03/16 Unknown Rx Sulfamethoxazole/Trimethoprim 1 each PO BID #14 tablet 04/03/16 Unknown Rx [Bactrim DS TAB] cephALEXin [Keflex] 500 mg PO Q8HR #21 cap 04/03/16 Unknown Rx Ketorolac [Toradol] 10 mg PO Q6H PRN #20 tablet 09/15/16 Unknown Rx Meloxicam [Mobic] 7.5 mg PO QDAY #5 tablet 02/24/17 Unknown Rx methOCARBAMOL [Robaxin TAB] 500 mg PO TID #15 tab 02/24/17 Unknown Rx ALBUTEROL Inhaler (OR & NICU) 2 puff IH QID PRN #1 inhalation 11/01/17 Unknown Rx [ProAir HFA Inhaler] Azithromycin [Zithromax Z-HAILY] 250 mg PO DAILY #6 tab 11/01/17 Unknown Rx Benzonatate [Tessalon Perles] 100 mg PO Q8HR PRN #30 capsule 11/01/17 Unknown Rx predniSONE [Deltasone] 40 mg PO QDAY 5 Days #10 tab 11/01/17 Unknown Rx traMADol [Ultram 50 MG tab] 50 mg PO Q6HR PRN #15 tablet 01/21/18 Unknown Rx HYDROcodone/APAP 5-325 [Snyder 1 each PO Q4HR PRN #12 tablet 12/31/18 Unknown Rx 5/325] Ibuprofen [Motrin 800 MG tab] 800 mg PO Q8HR PRN #15 tablet 12/31/18 Unknown Rx Allergies Allergy/AdvReac Type Severity Reaction Status Date / Time shellfish derived Allergy Swelling Verified 01/20/18 18:16 ED Review of Systems ROS: Stated complaint: R KNEE PAIN Other details as noted in HPI Constitutional: denies: chills, fever Eyes: denies: eye pain, eye discharge, vision change ENT: denies: ear pain, throat pain Respiratory: denies: cough, shortness of breath, wheezing Cardiovascular: denies: chest pain, palpitations Endocrine: no symptoms reported Gastrointestinal: denies: abdominal pain, nausea, diarrhea Genitourinary: denies: urgency, dysuria, discharge Musculoskeletal: denies: back pain, joint swelling, arthralgia Skin: denies: rash, lesions Neurological: denies: headache, weakness, paresthesias Psychiatric: denies: anxiety, depression Hematological/Lymphatic: denies: easy bleeding, easy bruising ED Past Medical Hx - Past Medical History Previous Medical History?: Yes Hx Congestive Heart Failure: No Hx Diabetes: No Hx Asthma: Yes Hx COPD: No - Surgical History Past Surgical History?: Yes Hx Appendectomy: Yes - Family History Family history: no significant - Social History Smoking Status: Current Every Day Smoker Substance Use Type: None - Medications Home Medications: Home Medications Medication Instructions Recorded Confirmed Last Taken Type Albuterol Sulfate [Proventil HFA] 1 - 2 puff IH Q4H PRN #2 hfa.aer.ad 09/08/14 12/15/15 Unknown Rx Fluticasone/Salmeterol [Advair 1 - 2 puff IH BID #1 disk.w.dev 02/23/15 12/15/15 Unknown Rx Diskus 250-50 mcg] Ciprofloxacin HCl [Ciprofloxacin 500 mg PO Q12HR #14 tab 12/15/15 Unknown Rx TAB] traMADol [Ultram] 50 mg PO Q6HR PRN #14 tablet 12/15/15 Unknown Rx Fluconazole [Diflucan TAB] 150 mg PO ONCE #1 tablet 12/16/15 Unknown Rx LORazepam [Ativan] 1 mg PO Q8HR PRN #6 tablet 03/01/16 Unknown Rx traMADol [Ultram 50 MG tab] 50 mg PO Q6HR PRN #10 tablet 03/01/16 Unknown Rx Acetaminophen/Codeine [Tylenol #3] 1 tab PO Q6H PRN #7 tab 04/03/16 Unknown Rx Diclofenac Sodium 75 mg PO BID #14 tablet.dr 04/03/16 Unknown Rx Sulfamethoxazole/Trimethoprim 1 each PO BID #14 tablet 04/03/16 Unknown Rx [Bactrim DS TAB] cephALEXin [Keflex] 500 mg PO Q8HR #21 cap 04/03/16 Unknown Rx Ketorolac [Toradol] 10 mg PO Q6H PRN #20 tablet 09/15/16 Unknown Rx Meloxicam [Mobic] 7.5 mg PO QDAY #5 tablet 02/24/17 Unknown Rx methOCARBAMOL [Robaxin TAB] 500 mg PO TID #15 tab 02/24/17 Unknown Rx ALBUTEROL Inhaler (OR & NICU) 2 puff IH QID PRN #1 inhalation 11/01/17 Unknown Rx [ProAir HFA Inhaler] Azithromycin [Zithromax Z-HAILY] 250 mg PO DAILY #6 tab 11/01/17 Unknown Rx Benzonatate [Tessalon Perles] 100 mg PO Q8HR PRN #30 capsule 11/01/17 Unknown Rx predniSONE [Deltasone] 40 mg PO QDAY 5 Days #10 tab 11/01/17 Unknown Rx traMADol [Ultram 50 MG tab] 50 mg PO Q6HR PRN #15 tablet 01/21/18 Unknown Rx HYDROcodone/APAP 5-325 [Snyder 1 each PO Q4HR PRN #12 tablet 12/31/18 Unknown Rx 5/325] Ibuprofen [Motrin 800 MG tab] 800 mg PO Q8HR PRN #15 tablet 12/31/18 Unknown Rx ED Physical Exam - General Limitations: No Limitations General appearance: alert, in no apparent distress - Head Head exam: Present: atraumatic, normocephalic - Eye Eye exam: Present: normal appearance - ENT ENT exam: Present: mucous membranes moist - Neck Neck exam: Present: normal inspection - Respiratory Respiratory exam: Present: normal lung sounds bilaterally. Absent: respiratory distress - Cardiovascular Cardiovascular Exam: Present: regular rate, normal rhythm. Absent: systolic murmur, diastolic murmur, rubs, gallop - GI/Abdominal GI/Abdominal exam: Present: soft, normal bowel sounds - Extremities Exam Extremities exam: Present: normal inspection, full ROM (except for with right knee), tenderness (right knee tenderness), normal capillary refill. Absent: pedal edema, joint swelling, calf tenderness - Back Exam Back exam: Present: normal inspection - Neurological Exam Neurological exam: Present: alert, oriented X3 - Psychiatric Psychiatric exam: Present: normal affect, normal mood - Skin Skin exam: Present: warm, dry, intact, normal color. Absent: rash ED Course Vital Signs 12/31/18 12/31/18 12/31/18 19:20 19:23 20:18 Temperature 98.7 F 98.7 F Pulse Rate 97 H 75 Respiratory 18 18 18 Rate Blood Pressure 134/100 134/100 Blood Pressure [Right] O2 Sat by Pulse 100 100 98 Oximetry 12/31/18 20:40 Temperature Pulse Rate 61 Respiratory 18 Rate Blood Pressure Blood Pressure 149/90 [Right] O2 Sat by Pulse 98 Oximetry - Reevaluation(s) Reevaluation #1: Discussed all results with patient. Patient is stable for discharge. Patient will be discharged home. Patient agrees to plan of care. Patient given d ischarge instructions. Patient voiced understanding of discharge instructions. 12/31/18 20:44 ED Lower Extremity MDM - Radiology Data Radiology results: report reviewed, image reviewed interpreted by me: No acute findings on x-ray Right tibia-fibula 2 views 1953 INDICATION: Fall, right knee pain No fractures or dislocations are seen. - Medical Decision Making Patient is 38-year-old female that came in for right knee pain secondary to a fall at home. Patient's x-rays negative. Patient stable at discharge. Patient's follow-up with orthopedist. - Differential Diagnosis knee pain. Ligament. Fracture. Contusion. Critical care attestation.: If time is entered above; I have spent that time in minutes in the direct care of this critically ill patient, excluding procedure time. ED Disposition Clinical Impression: Knee pain, right Qualifiers: Chronicity: acute Qualified Code(s): M25.561 - Pain in right knee Knee contusion Qualifiers: Encounter type: initial encounter Laterality: right Qualified Code(s): S80.01XA - Contusion of right knee, initial encounter Knee sprain Qualifiers: Encounter type: initial encounter Involved ligament of knee: unspecified ligament Laterality: right Qualified Code(s): S83.91XA - Sprain of unspecified site of right knee, initial encounter Disposition: DC- TO HOME OR SELFCARE Is pt being admited?: No Does the pt Need Aspirin: No Condition: Stable Instructions: Knee Sprain (ED), Knee Pain (ED) Additional Instructions: Patient to follow-up with primary care in 2-3 days. Patient to follow-up with orthopedist in 2-3 days. Patient to take Tylenol or ibuprofen when necessary for pain. Patient to return to ER if condition worsens. Patient to take meds as directed. Patient to increase water. Patient to rest. Patient to continue all meds. Prescriptions: Ibuprofen [Motrin 800 MG tab] 800 mg PO Q8HR PRN #15 tablet PRN Reason: Pain HYDROcodone/APAP 5-325 [Snyder 5/325] 1 each PO Q4HR PRN #12 tablet PRN Reason: Pain Referrals: SELINA CRAWFORD MD [Staff Physician] - 2-3 Days Forms: Work/School Release Form(ED) Time of Disposition: 20:47
--- NOTE | 2018-12-31 20:35 | XRay Report ---
Right tibia-fibula 2 views 1951 INDICATION: Fall, right knee pain No fractures or dislocations are seen. Signer Name: Joe Daley MD Signed: 12/31/2018 8:30 PM Workstation Name: [id number]
[2018-12-31 20:41] VITALS: BP 149/90
== END 2018-12-31 21:15 | disposition home or self-care (01) ==
LOC: ED 19:19
DX: S83.91XA Sprain of unspecified site of right knee, initial encounter (principal); S80.01XA Contusion of right knee, initial encounter; J45.909 Unspecified asthma, uncomplicated; F17.200 Nicotine dependence, unspecified, uncomplicated; Z90.710 Acquired absence of both cervix and uterus; Z79.899 Other long term (current) drug therapy; Z91.013 Allergy to seafood; W01.198A Fall on same level from slipping, tripping and stumbling with subsequent striking against other object, initial encounter; Y93.89 Activity, other specified; Y92.098 Other place in other non-institutional residence as the place of occurrence of the external cause; Y99.8 Other external cause status
CPT/HCPCS: 73590; 96374; 99284; J1170

== ENCOUNTER 2019-03-31 07:31 | Emergency (ER) | payer SELFPAY ==
[2019-03-31 07:47] VITALS: BP 129/88
--- NOTE | 2019-03-31 08:37 | Emergency Department Report ---
HPI - General Chief Complaint: Allergic Reaction Time Seen by Provider: 03/31/19 08:32 - HPI HPI: Patient reports facial swelling and a rash to the neck area that started two days ago after applying artificial hair to her scalp ED Past Medical Hx - Past Medical History Previous Medical History?: Yes Hx Congestive Heart Failure: No Hx Diabetes: No Hx Asthma: Yes Hx COPD: No - Surgical History Hx Appendectomy: Yes - Social History Smoking Status: Current Some Day Smoker Substance Use Type: Marijuana - Medications Home Medications: Home Medications Medication Instructions Recorded Confirmed Last Taken Type Albuterol Sulfate [Proventil HFA] 1 - 2 puff IH Q4H PRN #2 hfa.aer.ad 09/08/14 12/15/15 Unknown Rx Fluticasone/Salmeterol [Advair 1 - 2 puff IH BID #1 disk.w.dev 02/23/15 12/15/15 Unknown Rx Diskus 250-50 mcg] Ciprofloxacin HCl [Ciprofloxacin 500 mg PO Q12HR #14 tab 12/15/15 Unknown Rx TAB] traMADol [Ultram] 50 mg PO Q6HR PRN #14 tablet 12/15/15 Unknown Rx Fluconazole [Diflucan TAB] 150 mg PO ONCE #1 tablet 12/16/15 Unknown Rx LORazepam [Ativan] 1 mg PO Q8HR PRN #6 tablet 03/01/16 Unknown Rx traMADol [Ultram 50 MG tab] 50 mg PO Q6HR PRN #10 tablet 03/01/16 Unknown Rx Acetaminophen/Codeine [Tylenol #3] 1 tab PO Q6H PRN #7 tab 04/03/16 Unknown Rx Diclofenac Sodium 75 mg PO BID #14 tablet.dr 04/03/16 Unknown Rx Sulfamethoxazole/Trimethoprim 1 each PO BID #14 tablet 04/03/16 Unknown Rx [Bactrim DS TAB] cephALEXin [Keflex] 500 mg PO Q8HR #21 cap 04/03/16 Unknown Rx Ketorolac [Toradol] 10 mg PO Q6H PRN #20 tablet 09/15/16 Unknown Rx Meloxicam [Mobic] 7.5 mg PO QDAY #5 tablet 02/24/17 Unknown Rx methOCARBAMOL [Robaxin TAB] 500 mg PO TID #15 tab 02/24/17 Unknown Rx ALBUTEROL Inhaler (OR & NICU) 2 puff IH QID PRN #1 inhalation 11/01/17 Unknown Rx [ProAir HFA Inhaler] Azithromycin [Zithromax Z-HAILY] 250 mg PO DAILY #6 tab 11/01/17 Unknown Rx Benzonatate [Tessalon Perles] 100 mg PO Q8HR PRN #30 capsule 11/01/17 Unknown Rx predniSONE [Deltasone] 40 mg PO QDAY 5 Days #10 tab 11/01/17 Unknown Rx traMADol [Ultram 50 MG tab] 50 mg PO Q6HR PRN #15 tablet 01/21/18 Unknown Rx HYDROcodone/APAP 5-325 [[place] 1 each PO Q4HR PRN #12 tablet 12/31/18 Unknown Rx 5/325] Ibuprofen [Motrin 800 MG tab] 800 mg PO Q8HR PRN #15 tablet 12/31/18 Unknown Rx Famotidine [Pepcid] 20 mg PO BID #20 tablet 03/31/19 Unknown Rx diphenhydrAMINE [Benadryl CAP] 25 mg PO Q6HR PRN #25 capsule 03/31/19 Unknown Rx methylPREDNISolone [Medrol 4MG 4 mg PO DAILY #1 tab.ds.pk 03/31/19 Unknown Rx DOSEPAK (21 tabs)] ED Review of Systems ROS: Stated complaint: ALLERGIC REACTION TO SOMETHING/LIP/NECK Other details as noted in HPI Constitutional: denies: chills, fever Eyes: denies: eye pain, eye discharge, vision change ENT: denies: ear pain, throat pain Respiratory: denies: cough, orthopnea, shortness of breath, SOB with exertion, SOB at rest, stridor, wheezing Cardiovascular: denies: chest pain, palpitations Endocrine: no symptoms reported Gastrointestinal: denies: abdominal pain, nausea, diarrhea Genitourinary: denies: urgency, dysuria, discharge Musculoskeletal: denies: back pain, joint swelling, arthralgia Skin: rash. denies: lesions Neurological: denies: headache, weakness, paresthesias Psychiatric: denies: anxiety, depression Hematological/Lymphatic: denies: easy bleeding, easy bruising Physical Exam - Physical Exam Vital Signs: Vital Signs 03/31/19 07:45 Temperature 97.9 F Pulse Rate 68 Respiratory 18 Rate Blood Pressure 129/88 O2 Sat by Pulse 100 Oximetry General: No apparent distress noted, MAEW, A & O times three Physical Exam: Cardio: S1 S2, 2+ palpable pulses upper and lower extremities, regular rhythm, no murmurs, gallops or bruit Resp: lungs CTA upper and lower lobes, chest excursion symmetrical, even and unlabored, no distress noted, Skin: maculopapular rash to left facial and neck, no drainage or erythema ED Course Vital Signs 03/31/19 07:45 Temperature 97.9 F Pulse Rate 68 Respiratory 18 Rate Blood Pressure 129/88 O2 Sat by Pulse 100 Oximetry ED Medical Decision Making - Lab Data Vital Signs 03/31/19 07:45 Temperature 97.9 F Pulse Rate 68 Respiratory 18 Rate Blood Pressure 129/88 O2 Sat by Pulse 100 Oximetry - Medical Decision Making During the course of ED, all other systems were unremarkable except for documentation in HPI. Patient was sent home with prescriptions for Medrol dose pack, Benadryl and Pepcid, instructed to follow up with selective referral given at discharge, she verbalized understanding - Differential Diagnosis Contact Dermatitis, Allergic Dermatitis Critical care attestation.: If time is entered above; I have spent that time in minutes in the direct care of this critically ill patient, excluding procedure time. ED Disposition Clinical Impression: Contact dermatitis Qualifiers: Contact dermatitis type: unspecified Contact dermatitis trigger: unspecified trigger Qualified Code(s): L25.9 - Unspecified contact dermatitis, unspecified cause Disposition: -01 TO HOME OR SELFCARE Is pt being admited?: No Does the pt Need Aspirin: No Condition: Stable Instructions: Contact Dermatitis (ED) Additional Instructions: Take medication as directed. Follow up with the selective referral given at discharge Prescriptions: diphenhydrAMINE [Benadryl CAP] 25 mg PO Q6HR PRN #25 capsule PRN Reason: Itching methylPREDNISolone [Medrol 4MG DOSEPAK (21 tabs)] 4 mg PO DAILY #1 tab.ds.pk Famotidine [Pepcid] 20 mg PO BID #20 tablet Referrals: [facility] [Outside] - 3-5 Days Forms: Work/School Release Form(ED) Time of Disposition: 08:39
== END 2019-03-31 09:09 | disposition home or self-care (01) ==
LOC: ED 07:31
DX: L25.9 Unspecified contact dermatitis, unspecified cause (principal); J45.909 Unspecified asthma, uncomplicated; F17.200 Nicotine dependence, unspecified, uncomplicated
CPT/HCPCS: 99282

== ENCOUNTER 2020-03-17 15:58 | Emergency (ER) | payer BC, OTHER ==
[2020-03-17 16:29] VITALS: BP 132/88
[2020-03-17 16:59] LABS: Bacteria,Urine 1+ /HPF (Negative); Bilirubin,Urine NEG (Negative); Blood,Urine SM (Negative); Color,Urine Yellow (Yellow); Mucus,Urine FEW /HPF; Protein,Urine <15 mg/dL mg/dL (Negative)
--- NOTE | 2020-03-17 17:48 | Emergency Department Report ---
ED Female HPI - General Chief complaint: Abdominal Pain Stated complaint: ABD PAIN/BLOOD IN URINE Time Seen by Provider: 03/17/20 17:36 Source: patient Mode of arrival: Ambulatory Limitations: No Limitations - History of Present Illness Initial comments: Patient is a 40-year-old female presents emergency room with complaints of lower abdominal cramping that began 2 weeks ago. She states that she also has noticed intermittent hematuria and occasionally blood when she wipes. She denies any vaginal discharge, vaginal irritation, dysuria, fever, vomiting, diarrhea, back pain. She states that she had a Pap smear 6 months ago and it was normal. She denies any past medical history. No allergies to medications. Last menstrual cycle February 23. - Related Data Previous Rx's Medication Instructions Recorded Last Taken Type Albuterol Sulfate [Proventil HFA] 1 - 2 puff IH Q4H PRN #2 hfa.aer.ad 09/08/14 Unknown Rx Fluticasone/Salmeterol [Advair 1 - 2 puff IH BID #1 disk.w.dev 02/23/15 Unknown Rx Diskus 250-50 mcg] Ciprofloxacin HCl [Ciprofloxacin 500 mg PO Q12HR #14 tab 12/15/15 Unknown Rx TAB] traMADoL [Ultram] 50 mg PO Q6HR PRN #14 tablet 12/15/15 Unknown Rx Fluconazole (Nf) [Diflucan TAB] 150 mg PO ONCE #1 tablet 12/16/15 Unknown Rx LORazepam [Ativan] 1 mg PO Q8HR PRN #6 tablet 03/01/16 Unknown Rx traMADoL [Ultram 50 MG tab] 50 mg PO Q6HR PRN #10 tablet 03/01/16 Unknown Rx Acetaminophen/Codeine [Tylenol #3] 1 tab PO Q6H PRN #7 tab 04/03/16 Unknown Rx Diclofenac Sodium 75 mg PO BID #14 tablet.dr 04/03/16 Unknown Rx Sulfamethoxazole/Trimethoprim 1 each PO BID #14 tablet 04/03/16 Unknown Rx [Bactrim DS TAB] cephALEXin [Keflex] 500 mg PO Q8HR #21 cap 04/03/16 Unknown Rx Ketorolac [Toradol] 10 mg PO Q6H PRN #20 tablet 09/15/16 Unknown Rx Meloxicam [Mobic] 7.5 mg PO QDAY #5 tablet 02/24/17 Unknown Rx methOCARBAMOL [Robaxin TAB] 500 mg PO TID #15 tab 02/24/17 Unknown Rx Albuterol Mdi (or & Nicu Only) 2 puff IH QID PRN #1 inhalation 11/01/17 Unknown Rx [ProAir HFA Inhaler] Azithromycin [Zithromax Z-HAILY] 250 mg PO DAILY #6 tab 11/01/17 Unknown Rx Benzonatate [Tessalon Perles] 100 mg PO Q8HR PRN #30 capsule 11/01/17 Unknown Rx predniSONE [Deltasone] 40 mg PO QDAY 5 Days #10 tab 11/01/17 Unknown Rx traMADoL [Ultram 50 MG tab] 50 mg PO Q6HR PRN #15 tablet 01/21/18 Unknown Rx HYDROcodone/APAP 5-325 [[place] 1 each PO Q4HR PRN #12 tablet 12/31/18 Unknown Rx 5/325] Ibuprofen [Motrin 800 MG tab] 800 mg PO Q8HR PRN #15 tablet 12/31/18 Unknown Rx Famotidine [Pepcid] 20 mg PO BID #20 tablet 03/31/19 Unknown Rx diphenhydrAMINE [Benadryl CAP] 25 mg PO Q6HR PRN #25 capsule 03/31/19 Unknown Rx methylPREDNISolone [Medrol 4MG 4 mg PO DAILY #1 tab.ds.pk 03/31/19 Unknown Rx DOSEPAK (21 tabs)] Naproxen [EC-Naproxen] 500 mg PO BID PRN #14 tablet. 03/17/20 Unknown Rx Allergies Allergy/AdvReac Type Severity Reaction Status Date / Time shellfish derived Allergy Swelling Verified 01/20/18 18:16 ED Review of Systems ROS: Stated complaint: ABD PAIN/BLOOD IN URINE Other details as noted in HPI Comment: All other systems reviewed and negative ED Past Medical Hx - Past Medical History Previous Medical History?: Yes Hx Congestive Heart Failure: No Hx Diabetes: No Hx Asthma: Yes Hx COPD: No - Surgical History Past Surgical History?: Yes Hx Appendectomy: Yes - Social History Smoking Status: Current Every Day Smoker Substance Use Type: Alcohol, Marijuana - Medications Home Medications: Home Medications Medication Instructions Recorded Confirmed Last Taken Type Albuterol Sulfate [Proventil HFA] 1 - 2 puff IH Q4H PRN #2 hfa.aer.ad 09/08/14 12/15/15 Unknown Rx Fluticasone/Salmeterol [Advair 1 - 2 puff IH BID #1 disk.w.dev 02/23/15 12/15/15 Unknown Rx Diskus 250-50 mcg] Ciprofloxacin HCl [Ciprofloxacin 500 mg PO Q12HR #14 tab 12/15/15 Unknown Rx TAB] traMADoL [Ultram] 50 mg PO Q6HR PRN #14 tablet 12/15/15 Unknown Rx Fluconazole (Nf) [Diflucan TAB] 150 mg PO ONCE #1 tablet 12/16/15 Unknown Rx LORazepam [Ativan] 1 mg PO Q8HR PRN #6 tablet 03/01/16 Unknown Rx traMADoL [Ultram 50 MG tab] 50 mg PO Q6HR PRN #10 tablet 03/01/16 Unknown Rx Acetaminophen/Codeine [Tylenol #3] 1 tab PO Q6H PRN #7 tab 04/03/16 Unknown Rx Diclofenac Sodium 75 mg PO BID #14 tablet.dr 04/03/16 Unknown Rx Sulfamethoxazole/Trimethoprim 1 each PO BID #14 tablet 04/03/16 Unknown Rx [Bactrim DS TAB] cephALEXin [Keflex] 500 mg PO Q8HR #21 cap 04/03/16 Unknown Rx Ketorolac [Toradol] 10 mg PO Q6H PRN #20 tablet 09/15/16 Unknown Rx Meloxicam [Mobic] 7.5 mg PO QDAY #5 tablet 02/24/17 Unknown Rx methOCARBAMOL [Robaxin TAB] 500 mg PO TID #15 tab 02/24/17 Unknown Rx Albuterol Mdi (or & Nicu Only) 2 puff IH QID PRN #1 inhalation 11/01/17 Unknown Rx [ProAir HFA Inhaler] Azithromycin [Zithromax Z-HAILY] 250 mg PO DAILY #6 tab 11/01/17 Unknown Rx Benzonatate [Tessalon Perles] 100 mg PO Q8HR PRN #30 capsule 11/01/17 Unknown Rx predniSONE [Deltasone] 40 mg PO QDAY 5 Days #10 tab 11/01/17 Unknown Rx traMADoL [Ultram 50 MG tab] 50 mg PO Q6HR PRN #15 tablet 01/21/18 Unknown Rx HYDROcodone/APAP 5-325 [[place] 1 each PO Q4HR PRN #12 tablet 12/31/18 Unknown Rx 5/325] Ibuprofen [Motrin 800 MG tab] 800 mg PO Q8HR PRN #15 tablet 12/31/18 Unknown Rx Famotidine [Pepcid] 20 mg PO BID #20 tablet 03/31/19 Unknown Rx diphenhydrAMINE [Benadryl CAP] 25 mg PO Q6HR PRN #25 capsule 03/31/19 Unknown Rx methylPREDNISolone [Medrol 4MG 4 mg PO DAILY #1 tab.ds.pk 03/31/19 Unknown Rx DOSEPAK (21 tabs)] Naproxen [EC-Naproxen] 500 mg PO BID PRN #14 tablet. 03/17/20 Unknown Rx ED Physical Exam - General Limitations: No Limitations General appearance: alert, in no apparent distress - Head Head exam: Present: atraumatic, normocephalic - Eye Eye exam: Present: normal appearance - ENT ENT exam: Present: mucous membranes moist - Respiratory Respiratory exam: Present: normal lung sounds bilaterally. Absent: respiratory distress, wheezes, rales, rhonchi, stridor, chest wall tenderness, accessory muscle use, decreased breath sounds, prolonged expiratory - Cardiovascular Cardiovascular Exam: Present: regular rate, normal rhythm, normal heart sounds. Absent: systolic murmur, diastolic murmur, rubs, gallop - GI/Abdominal GI/Abdominal exam: Present: soft, normal bowel sounds. Absent: distended, tenderness, guarding, rebound, rigid - Neurological Exam Neurological exam: Present: alert, oriented X3 - Psychiatric Psychiatric exam: Present: normal affect, normal mood - Skin Skin exam: Present: warm, dry, intact ED Course Vital Signs 03/17/20 16:26 Temperature 98.6 F Pulse Rate 82 Respiratory 20 Rate Blood Pressure 132/88 O2 Sat by Pulse 98 Oximetry ED Medical Decision Making - Lab Data Lab Results 03/17/20 03/17/20 Range/Units 17:36 Unknown Urine Color Yellow (Yellow) Urine Turbidity Clear (Clear) Urine pH 5.0 (5.0-7.0) Ur Specific [place] 1.031 H (1.003-1.030) Urine Protein <15 mg/dl (Negative) mg/dL Urine Glucose (UA) Neg (Negative) mg/dL Urine Ketones Neg (Negative) mg/dL Urine Blood Sm (Negative) Urine Nitrite Neg (Negative) Urine Bilirubin Neg (Negative) Urine Urobilinogen 4.0 (<2.0) mg/dL Ur Leukocyte Esterase Neg (Negative) Urine WBC (Auto) 1.0 (0.0-6.0) /HPF Urine RBC (Auto) 4.0 (0.0-6.0) /HPF U Epithel Cells (Auto) 10.0 (0-13.0) /HPF Urine Bacteria (Auto) 1+ (Negative) /HPF Urine Mucus Few /HPF Urine HCG, Qual Negative (Negative) - Medical Decision Making Patient is a 40-year-old female presents emergency room with complaints of lower abdominal cramping that began 2 weeks ago. She states that she also has noticed intermittent hematuria and occasionally blood when she wipes. She denies any vaginal discharge, vaginal irritation, dysuria, fever, vomiting, diarrhea, back pain. She states that she had a Pap smear 6 months ago and it was normal. She denies any past medical history. No allergies to medications. Last menstrual cycle February 23. vitals are normal. No abdominal tenderness on exam, no guarding, no rebound, no rigidity, normal bowel sounds, no peritoneal signs. She denies any back pain. UA is within normal limits. No red blood cells, no white blood cells, no leukocyte esterase. No evidence of UTI based on UA. Urine is negative. This has been ongoing for 2 weeks. She has no abdominal tenderness on exam. She denies any vaginal discharge or irritation. Patient will be referred to [facility] and urologist. Patient given prescription for naproxen. Advised patient Please take medication as prescribed. Increase your water intake. Please follow-up with your primary care doctor. Please follow-up with [facility]. Please follow-up with the urologist. Return to the emergency room for any new or worsening symptoms. - Differential Diagnosis UTI, neprolithiasis, fibroids, endometriosis, adenomyosis, bladder CA Critical care attestation.: If time is entered above; I have spent that time in minutes in the direct care of this critically ill patient, excluding procedure time. ED Disposition Clinical Impression: Abdominal cramping Disposition: DC-01 TO HOME OR SELFCARE Is pt being admited?: No Does the pt Need Aspirin: No Condition: Stable Instructions: Abdominal Pain (ED) Additional Instructions: Please take medication as prescribed. Increase your water intake. Please follow-up with your primary care doctor. Please follow-up with [facility]. Please follow-up with the urologist. Return to the emergency room for any new or worsening symptoms. Prescriptions: Naproxen [EC-Naproxen] 500 mg PO BID PRN #14 tablet.dr HUNTER Reason: pain Referrals: MAIA BRADLEY MD [Staff Physician] - 2-3 Days your, wharf hand [Other] - 2-3 Days your, primary care doctor [Other] - 2-3 Days Time of Disposition: 18:21 Print Language: INDONESIAN
[2020-03-17 18:14] LABS: HCG Qualitative,Urine Negative (Negative)
== END 2020-03-17 18:29 | disposition home or self-care (01) ==
LOC: ED 15:58
DX: R10.30 Lower abdominal pain, unspecified (principal); J45.909 Unspecified asthma, uncomplicated; F17.200 Nicotine dependence, unspecified, uncomplicated; F12.90 Cannabis use, unspecified, uncomplicated; Z90.49 Acquired absence of other specified parts of digestive tract; Z91.013 Allergy to seafood; Z79.899 Other long term (current) drug therapy
CPT/HCPCS: 81001; 81025

== ENCOUNTER 2020-09-24 14:55 | Emergency (ER) | payer BC ==
[2020-09-24 15:22] VITALS: BP 130/80
--- NOTE | 2020-09-24 15:24 | Event Note ---
ED Screening Note Date of service: 09/24/20 Time: 15:22 ED Screening Note: Pt c/o right knee injury while playing laser tag 3 days ago This initial assessment/diagnostic orders/clinical plan/treatment(s) is/are subject to change based on patients health status, clinical progression and re-assessment by fellow clinical providers in the ED. Further treatment and workup at subsequent clinical providers discretion. Patient/guardian urged not to elope from the ED as their condition may be serious if not clinically assessed and managed. Initial orders include: xr
--- NOTE | 2020-09-24 16:35 | XRay Report ---
RIGHT KNEE 3 VIEWS INDICATION: MEDIAL PAIN AFTER INJURY. COMPARISON: No relevant prior imaging study available. FINDINGS: No acute skeletal abnormality. Is a moderate joint effusion. No soft tissue swelling. IMPRESSION: 1. Joint effusion. No acute skeletal abnormality. Signer Name: Temo Turner MD Signed: 09/24/2020 4:31 PM Workstation Name: [id number]
--- NOTE | 2020-09-24 17:27 | Emergency Department Report ---
ED Lower Extremity HPI - General Chief Complaint: Extremity Injury, Lower Stated Complaint: RT KNEE PAIN Time Seen by Provider: 09/24/20 15:22 Source: patient Mode of arrival: Ambulatory Limitations: No Limitations - History of Present Illness Initial Comments: Patient is a 40-year-old female presents emergency room complaints of right knee pain that began 2 days ago. She states that she was out playing in the yard with her kids and she felt her knee give out on her. She states that this knee has given out in the past. She is currently wearing a splint that she got [id number]. She denies any history of any previous fractures or surgeries of this knee. She is ambulatory. She states that she has been having knee pain and swelling. She denies any numbness. PMHx asthma. No allergies medications. Last menstrual cycle 09/12/2020. - Related Data Previous Rx's Medication Instructions Recorded Last Taken Type Albuterol Sulfate [Proventil HFA] 1 - 2 puff IH Q4H PRN #2 hfa.aer.ad 09/08/14 Unknown Rx Fluticasone/Salmeterol [Advair 1 - 2 puff IH BID #1 disk.w.dev 02/23/15 Unknown Rx Diskus 250-50 mcg] Ciprofloxacin HCl [Ciprofloxacin 500 mg PO Q12HR #14 tab 12/15/15 Unknown Rx TAB] traMADoL [Ultram] 50 mg PO Q6HR PRN #14 tablet 12/15/15 Unknown Rx Fluconazole (Nf) [Diflucan TAB] 150 mg PO ONCE #1 tablet 12/16/15 Unknown Rx LORazepam [Ativan] 1 mg PO Q8HR PRN #6 tablet 03/01/16 Unknown Rx traMADoL [Ultram 50 MG tab] 50 mg PO Q6HR PRN #10 tablet 03/01/16 Unknown Rx Acetaminophen/Codeine [Tylenol #3] 1 tab PO Q6H PRN #7 tab 04/03/16 Unknown Rx Diclofenac Sodium 75 mg PO BID #14 tablet.dr 04/03/16 Unknown Rx Sulfamethoxazole/Trimethoprim 1 each PO BID #14 tablet 04/03/16 Unknown Rx [Bactrim DS TAB] cephALEXin [Keflex] 500 mg PO Q8HR #21 cap 04/03/16 Unknown Rx Ketorolac [Toradol] 10 mg PO Q6H PRN #20 tablet 09/15/16 Unknown Rx Meloxicam [Mobic] 7.5 mg PO QDAY #5 tablet 02/24/17 Unknown Rx methOCARBAMOL [Robaxin TAB] 500 mg PO TID #15 tab 02/24/17 Unknown Rx Albuterol Mdi (or & Nicu Only) 2 puff IH QID PRN #1 inhalation 11/01/17 Unknown Rx [ProAir HFA Inhaler] Azithromycin [Zithromax Z-HAILY] 250 mg PO DAILY #6 tab 11/01/17 Unknown Rx Benzonatate [Tessalon Perles] 100 mg PO Q8HR PRN #30 capsule 11/01/17 Unknown Rx predniSONE [Deltasone] 40 mg PO QDAY 5 Days #10 tab 11/01/17 Unknown Rx traMADoL [Ultram 50 MG tab] 50 mg PO Q6HR PRN #15 tablet 01/21/18 Unknown Rx HYDROcodone/APAP 5-325 [[place] 1 each PO Q4HR PRN #12 tablet 12/31/18 Unknown Rx 5/325] Ibuprofen [Motrin 800 MG tab] 800 mg PO Q8HR PRN #15 tablet 12/31/18 Unknown Rx Famotidine [Pepcid] 20 mg PO BID #20 tablet 03/31/19 Unknown Rx diphenhydrAMINE [Benadryl CAP] 25 mg PO Q6HR PRN #25 capsule 03/31/19 Unknown Rx methylPREDNISolone [Medrol 4MG 4 mg PO DAILY #1 tab.ds.pk 03/31/19 Unknown Rx DOSEPAK (21 tabs)] Naproxen [EC-Naproxen] 500 mg PO BID PRN #14 tablet. 03/17/20 Unknown Rx Naproxen [EC-Naproxen] 500 mg PO BID PRN #14 tablet. 09/24/20 Unknown Rx Allergies Allergy/AdvReac Type Severity Reaction Status Date / Time shellfish derived Allergy Swelling Verified 01/20/18 18:16 ED Review of Systems ROS: Stated complaint: RT KNEE PAIN Other details as noted in HPI Comment: All other systems reviewed and negative ED Past Medical Hx - Past Medical History Hx Congestive Heart Failure: No Hx Diabetes: No Hx Asthma: Yes Hx COPD: No - Surgical History Hx Appendectomy: Yes - Social History Smoking Status: Current Every Day Smoker Substance Use Type: Alcohol, Marijuana - Medications Home Medications: Home Medications Medication Instructions Recorded Confirmed Last Taken Type Albuterol Sulfate [Proventil HFA] 1 - 2 puff IH Q4H PRN #2 hfa.aer.ad 09/08/14 12/15/15 Unknown Rx Fluticasone/Salmeterol [Advair 1 - 2 puff IH BID #1 disk.w.dev 02/23/15 12/15/15 Unknown Rx Diskus 250-50 mcg] Ciprofloxacin HCl [Ciprofloxacin 500 mg PO Q12HR #14 tab 12/15/15 Unknown Rx TAB] traMADoL [Ultram] 50 mg PO Q6HR PRN #14 tablet 12/15/15 Unknown Rx Fluconazole (Nf) [Diflucan TAB] 150 mg PO ONCE #1 tablet 12/16/15 Unknown Rx LORazepam [Ativan] 1 mg PO Q8HR PRN #6 tablet 03/01/16 Unknown Rx traMADoL [Ultram 50 MG tab] 50 mg PO Q6HR PRN #10 tablet 03/01/16 Unknown Rx Acetaminophen/Codeine [Tylenol #3] 1 tab PO Q6H PRN #7 tab 04/03/16 Unknown Rx Diclofenac Sodium 75 mg PO BID #14 tablet. 04/03/16 Unknown Rx Sulfamethoxazole/Trimethoprim 1 each PO BID #14 tablet 04/03/16 Unknown Rx [Bactrim DS TAB] cephALEXin [Keflex] 500 mg PO Q8HR #21 cap 04/03/16 Unknown Rx Ketorolac [Toradol] 10 mg PO Q6H PRN #20 tablet 09/15/16 Unknown Rx Meloxicam [Mobic] 7.5 mg PO QDAY #5 tablet 02/24/17 Unknown Rx methOCARBAMOL [Robaxin TAB] 500 mg PO TID #15 tab 02/24/17 Unknown Rx Albuterol Mdi (or & Nicu Only) 2 puff IH QID PRN #1 inhalation 11/01/17 Unknown Rx [ProAir HFA Inhaler] Azithromycin [Zithromax Z-HAILY] 250 mg PO DAILY #6 tab 11/01/17 Unknown Rx Benzonatate [Tessalon Perles] 100 mg PO Q8HR PRN #30 capsule 11/01/17 Unknown Rx predniSONE [Deltasone] 40 mg PO QDAY 5 Days #10 tab 11/01/17 Unknown Rx traMADoL [Ultram 50 MG tab] 50 mg PO Q6HR PRN #15 tablet 01/21/18 Unknown Rx HYDROcodone/APAP 5-325 [[place] 1 each PO Q4HR PRN #12 tablet 12/31/18 Unknown Rx 5/325] Ibuprofen [Motrin 800 MG tab] 800 mg PO Q8HR PRN #15 tablet 12/31/18 Unknown Rx Famotidine [Pepcid] 20 mg PO BID #20 tablet 03/31/19 Unknown Rx diphenhydrAMINE [Benadryl CAP] 25 mg PO Q6HR PRN #25 capsule 03/31/19 Unknown Rx methylPREDNISolone [Medrol 4MG 4 mg PO DAILY #1 tab.ds.pk 03/31/19 Unknown Rx DOSEPAK (21 tabs)] Naproxen [EC-Naproxen] 500 mg PO BID PRN #14 tablet. 03/17/20 Unknown Rx Naproxen [EC-Naproxen] 500 mg PO BID PRN #14 tablet. 09/24/20 Unknown Rx ED Physical Exam - General Limitations: No Limitations General appearance: alert, in no apparent distress - Head Head exam: Present: atraumatic, normocephalic - Eye Eye exam: Present: normal appearance - ENT ENT exam: Present: mucous membranes moist - Respiratory Respiratory exam: Absent: respiratory distress, accessory muscle use - Extremities Exam Extremities exam: Present: other (ttp to the right medial knee, mild edema, FROM of the right knee with discomfort upon full flexion, no obvious joint laxity, no deformity, neurovascularly intact) - Neurological Exam Neurological exam: Present: alert, oriented X3 - Psychiatric Psychiatric exam: Present: normal affect, normal mood - Skin Skin exam: Present: warm, dry, intact ED Course Vital Signs 09/24/20 15:21 Temperature 98.6 F Pulse Rate 79 Respiratory 18 Rate Blood Pressure 130/80 [Right] O2 Sat by Pulse 99 Oximetry ED Lower Extremity MDM - Radiology Data Radiology results: report reviewed Ordering Physician: DARIUS FERRARO Date of Service: 09/24/20 Procedure(s): XR knee 3V RT Accession Number(s): [id number] cc: DARIUS FERRARO Fluoro Time In Minutes: RIGHT KNEE 3 VIEWS INDICATION: MEDIAL PAIN AFTER INJURY. COMPARISON: No relevant prior imaging study available. FINDINGS: No acute skeletal abnormality. Is a moderate joint effusion. No soft tissue swelling. IMPRESSION: 1. Joint effusion. No acute skeletal abnormality. Signer Name: Temo Turner MD Signed: 09/24/2020 4:31 PM Workstation Name: [id number] Transcribed By: LATOYA Dictated By: Temo Turner MD Electronically Authenticated By: Temo Turner MD Signed Date/Time: 09/24/201630 DD/ 30 TD/TT: Print - Medical Decision Making Patient is a 40-year-old female presents emergency room complaints of right knee pain that began 2 days ago. She states that she was out playing in the yard with her kids and she felt her knee give out on her. She states that this knee has given out in the past. She is currently wearing a splint that she got [id number]. She denies any history of any previous fractures or surgeries of this knee. She is ambulatory. She states that she has been having knee pain and swelling. She denies any numbness. PMHx asthma. No allergies medications. Last menstrual cycle 09/12/2020. Vitals are normal. On exam:ttp to the right medial knee, mild edema, FROM of the right knee with discomfort upon full flexion, no obvious joint laxity, no deformity, neurovascularly intact. X-ray right knee: 1. Joint effusion. No acute skeletal abnormality. Discussed all results with patient answered questions. Symptoms likely related to knee sprain. Patient placed in knee immobilizer by tech and given crutches. Discussed the importance of orthopedic follow-up. Patient given prescription for naproxen. Advised patient Please take medication as prescribed as needed. May use ice 15 minutes at a time, rest, elevation of the leg Follow-up with an orthopedic doctor. Return to emergency room for new or worsening symptoms. Critical care attestation.: If time is entered above; I have spent that time in minutes in the direct care of this critically ill patient, excluding procedure time. ED Disposition Clinical Impression: Right knee sprain Qualifiers: Encounter type: initial encounter Involved ligament of knee: unspecified ligament Qualified Code(s): S83.91XA - Sprain of unspecified site of right knee, initial encounter Disposition: TO HOME OR SELFCARE Is pt being admited?: No Does the pt Need Aspirin: No Condition: Stable Instructions: RICE Therapy for Routine Care of Injuries, [id number], Knee Sprain, Adult, [id number] Additional Instructions: Please take medication as prescribed as needed. May use ice 15 minutes at a time, rest, elevation of the leg Follow-up with an orthopedic doctor. Return to emergency room for new or worsening symptoms. Prescriptions: Naproxen [EC-Naproxen] 500 mg PO BID PRN #14 tablet.dr HUNTER Reason: pain Referrals: PRIMARY CAREMD [Primary Care Provider] - 3-5 Days SELINA CRAWFORD MD [Staff Physician] - 3-[address] [facility] [Provider Group] - 3-5 Days Forms: Work/School Release Form(ED) Time of Disposition: 17:26 Print Language: MALAGASY
== END 2020-09-24 18:53 | disposition home or self-care (01) ==
LOC: ED 14:55
DX: S83.91XA Sprain of unspecified site of right knee, initial encounter (principal); J45.909 Unspecified asthma, uncomplicated; F17.200 Nicotine dependence, unspecified, uncomplicated; F12.10 Cannabis abuse, uncomplicated; Z79.899 Other long term (current) drug therapy; Z91.013 Allergy to seafood; X58.XXXA Exposure to other specified factors, initial encounter; Y93.89 Activity, other specified; Y92.89 Other specified places as the place of occurrence of the external cause; Y99.8 Other external cause status
CPT/HCPCS: 99283

== ENCOUNTER 2020-10-06 17:21 | Emergency (ER) | payer BC ==
[2020-10-06 17:32] VITALS: BP 154/97
== END 2020-10-06 21:37 | disposition left against medical advice (07) ==
LOC: ED 17:21
DX: R06.02 Shortness of breath (principal); R50.9 Fever, unspecified; R05 Cough; Z53.21 Procedure and treatment not carried out due to patient leaving prior to being seen by health care provider

== ENCOUNTER 2020-10-07 06:57 | Emergency (ER) | payer BC ==
[2020-10-07 07:27] LABS: Basophils % (Auto) 0.5 % (0.0-1.8); Eosinophils % (Auto) 0.2 % (0.0-4.3); Hematocrit 36.5 % (30.3-42.9); Hemoglobin 12.2 gm/dl (10.1-14.3); Lymphocytes # (Auto) 1.6 K/mm3 (1.2-5.4); Lymphocytes % (Auto) 19.6 % (13.4-35.0); Mean Corpuscular HGB Conc 34 % (30-34); Mean Corpuscular Volume 93 fl (79-97); Monocytes # (Auto) 0.8 K/mm3 (0.0-0.8); Monocytes % (Auto) 9.8 % (0.0-7.3); Platelet Count 330 K/mm3 (140-440); Red Blood Count 3.94 M/mm3 (3.65-5.03); Red Cell Distribution Width 14.5 % (13.2-15.2)
[2020-10-07 07:47] LABS: Alanine Aminotransferase 9 units/L (7-56); Albumin 4.1 g/dL (3.9-5); Blood Urea Nitrogen 10 mg/dL (7-17); Calcium 9.2 mg/dL (8.4-10.2); Hemolysis Index 0
[2020-10-07 07:48] LABS: BUN/Creatinine Ratio 17
--- NOTE | 2020-10-07 08:45 | Electrocardiograph Report ---
[facility] Test Date: 2020-10-07 Test Time: 07:12:21 Pat Name: DEBRA KHOURY Department: Room: Gender: F Endorsement Clerk: ANAT : 1980 Requested By: ED DOC Order Number: [id number] Reading MD: Yariel Mendoza Measurements Intervals [place] Rate: 97 P: 75 DC: 147 QRS: 61 QRSD: 79 T: 40 QT: 322 QTc: 409 Interpretive Statements Sinus rhythm Probable left atrial enlargement No previous ECG available for comparison Electronically Signed On 10-07-2020 8:45:10 EDT by Yariel Mendoza
[2020-10-07 09:30] LABS: Bilirubin,Urine NEG (Negative); Blood,Urine NEG (Negative); Color,Urine Amber (Yellow); Mucus,Urine 3+ /HPF
[2020-10-07 09:31] LABS: HCG Qualitative,Urine Negative (Negative)
--- NOTE | 2020-10-07 09:52 | XRay Report ---
CHEST PA AND LATERAL VIEWS INDICATION: CP. COMPARISON: None. FINDINGS: Support devices: None. Heart: Within normal limits. Lungs/Pleura: No acute pulmonary or pleural findings. IMPRESSION: 1. No acute findings. Signer Name: Temo Turner MD Signed: 10/07/2020 9:47 AM Workstation Name: [id number]
--- NOTE | 2020-10-07 11:43 | Event Note ---
ED Screening Note Date of service: 10/07/20 Time: 11:41 ED Screening Note: 40-year-old female patient with history of asthma and tobacco use presents to the emergency department with complaints of subjective fever, headache, body aches, chest pain, cough, and shortness of breath for 3 days. No known sick contacts. Patient has not been tested for COVID-19. No current steroid or antibiotic use. Patient states she used her nebulizer prior to coming to the emergency department this morning. No prior history of hypertension, hyperlipidemia, diabetes. There is a family history of aneurysms. No venous embolism risk factors identified on history. Tachycardic in triage. General: Awake, appropriately interactive, no acute distress. Neck: Supple. Full range of motion intact. Cardiovascular: Normal peripheral perfusion. Pulmonary: Mild dyspnea on exertion. Actively coughing on exam. No wheezing or stridor. Patient is speaking normally without use of accessory muscles. Skin: No apparent rashes or lesions. Neurological: No facial asymmetry. Speech is clear. Follows commands. Patient is alert and oriented. Musculoskeletal: Moves all four extremities spontaneously with normal range of motion. Psych: Cooperative. Appropriate mood and affect. I have greeted and performed a focused rapid initial assessment of this patient. A comprehensive ED assessment and evaluation of the patient, analysis of all test results, and completion of the medical decision-making process will be conducted by additional ED providers. This initial assessment/diagnostic orders/clinical plan/treatment(s) is/are subject to change based on patients health status, clinical progression and re-assessment. Further treatment and workup at subsequent clinical provider's discretion. Patient/guardian urged not to elope from the ED as their condition may be serious if not clinically assessed and managed.
[2020-10-07 13:20] VITALS: BP 180/108
[2020-10-07] MEDS ORDERED: ALBUTEROL 2.5 MG/3 ML NEBU IH ONE (13:26)
[2020-10-07] MEDS ORDERED: IPRATROPIUM 0.02% NEBU 2.5 ML IH ONE (13:26)
[2020-10-07] MEDS ORDERED: ACETAMINOPHEN W/CODEINE 300-30 MG TAB PO ONE (13:27)
[2020-10-07] MEDS ORDERED: dexAMETHasone 20 MG/5 ML VIAL IM ONE (13:27)
--- NOTE | 2020-10-07 13:33 | Emergency Department Report ---
ED General Adult HPI - General Chief complaint: Chest Pain Stated complaint: HEADACHE/BODY ACHE/SOB Time Seen by Provider: 10/07/20 13:26 Source: patient Mode of arrival: Ambulatory Limitations: No Limitations - History of Present Illness Initial comments: 40-year-old female patient with history of asthma and tobacco use presents to the emergency department with complaints of subjective fever, headache, body aches, chest pain, cough, and shortness of breath for 3 days. No known sick contacts. Patient has not been tested for COVID-19. No current steroid or antibiotic use. Patient states she used her nebulizer prior to coming to the emergency department this morning. No prior history of hypertension, hyperlipidemia, diabetes. There is a family history of aneurysms. No venous embolism risk factors identified on history. Onset/Timin -: days(s) Location: head Severity scale (0 -10): 5 Quality: aching Consistency: constant Improves with: none Worsens with: none Associated Symptoms: headaches. denies: nausea/vomiting - Related Data Previous Rx's Medication Instructions Recorded Last Taken Type Albuterol Sulfate [Proventil HFA] 1 - 2 puff IH Q4H PRN #2 hfa.aer.ad 09/08/14 Unknown Rx Fluticasone/Salmeterol [Advair 1 - 2 puff IH BID #1 disk.w.dev 02/23/15 Unknown Rx Diskus 250-50 mcg] Ciprofloxacin HCl [Ciprofloxacin 500 mg PO Q12HR #14 tab 12/15/15 Unknown Rx TAB] traMADoL [Ultram] 50 mg PO Q6HR PRN #14 tablet 12/15/15 Unknown Rx Fluconazole (Nf) [Diflucan TAB] 150 mg PO ONCE #1 tablet 12/16/15 Unknown Rx LORazepam [Ativan] 1 mg PO Q8HR PRN #6 tablet 03/01/16 Unknown Rx traMADoL [Ultram 50 MG tab] 50 mg PO Q6HR PRN #10 tablet 03/01/16 Unknown Rx Acetaminophen/Codeine [Tylenol #3] 1 tab PO Q6H PRN #7 tab 04/03/16 Unknown Rx Diclofenac Sodium 75 mg PO BID #14 tablet.dr 04/03/16 Unknown Rx Sulfamethoxazole/Trimethoprim 1 each PO BID #14 tablet 04/03/16 Unknown Rx [Bactrim DS TAB] cephALEXin [Keflex] 500 mg PO Q8HR #21 cap 04/03/16 Unknown Rx Ketorolac [Toradol] 10 mg PO Q6H PRN #20 tablet 09/15/16 Unknown Rx Meloxicam [Mobic] 7.5 mg PO QDAY #5 tablet 02/24/17 Unknown Rx methOCARBAMOL [Robaxin TAB] 500 mg PO TID #15 tab 02/24/17 Unknown Rx Azithromycin [Zithromax Z-HAILY] 250 mg PO DAILY #6 tab 11/01/17 Unknown Rx Benzonatate [Tessalon Perles] 100 mg PO Q8HR PRN #30 capsule 11/01/17 Unknown Rx predniSONE [Deltasone] 40 mg PO QDAY 5 Days #10 tab 11/01/17 Unknown Rx traMADoL [Ultram 50 MG tab] 50 mg PO Q6HR PRN #15 tablet 01/21/18 Unknown Rx HYDROcodone/APAP 5-325 [[employer] 1 each PO Q4HR PRN #12 tablet 12/31/18 Unknown Rx 5/325] Ibuprofen [Motrin 800 MG tab] 800 mg PO Q8HR PRN #15 tablet 12/31/18 Unknown Rx Famotidine [Pepcid] 20 mg PO BID #20 tablet 03/31/19 Unknown Rx diphenhydrAMINE [Benadryl CAP] 25 mg PO Q6HR PRN #25 capsule 03/31/19 Unknown Rx methylPREDNISolone [Medrol 4MG 4 mg PO DAILY #1 tab.ds.pk 03/31/19 Unknown Rx DOSEPAK (21 tabs)] Naproxen [EC-Naproxen] 500 mg PO BID PRN #14 tablet. 03/17/20 Unknown Rx Naproxen [EC-Naproxen] 500 mg PO BID PRN #14 tablet. 09/24/20 Unknown Rx ALBUTEROL NEB's [Proventil 0.083% 2.5 mg IH TID PRN #1 box 10/07/20 Unknown Rx NEBS] Albuterol Mdi (or & Nicu Only) 2 puff IH QID PRN #2 inhalation 10/07/20 Unknown Rx [ProAir HFA Inhaler] Prednisone [predniSONE 10 mg 10 mg PO .TAPER #1 tab.ds.pk 10/07/20 Unknown Rx (6-Day Pack, 21 Tabs)] Allergies Allergy/AdvReac Type Severity Reaction Status Date / Time shellfish derived Allergy Swelling Verified 10/06/20 17:32 ED Review of Systems ROS: Stated complaint: HEADACHE/BODY ACHE/SOB Other details as noted in HPI ED Past Medical Hx - Past Medical History Hx Congestive Heart Failure: No Hx Diabetes: No Hx Asthma: Yes Hx COPD: No - Surgical History Hx Appendectomy: Yes - Social History Smoking Status: Current Some Day Smoker - Medications Home Medications: Home Medications Medication Instructions Recorded Confirmed Last Taken Type Albuterol Sulfate [Proventil HFA] 1 - 2 puff IH Q4H PRN #2 hfa.aer.ad 09/08/14 12/15/15 Unknown Rx Fluticasone/Salmeterol [Advair 1 - 2 puff IH BID #1 disk.w.dev 02/23/15 12/15/15 Unknown Rx Diskus 250-50 mcg] Ciprofloxacin HCl [Ciprofloxacin 500 mg PO Q12HR #14 tab 12/15/15 Unknown Rx TAB] traMADoL [Ultram] 50 mg PO Q6HR PRN #14 tablet 12/15/15 Unknown Rx Fluconazole (Nf) [Diflucan TAB] 150 mg PO ONCE #1 tablet 12/16/15 Unknown Rx LORazepam [Ativan] 1 mg PO Q8HR PRN #6 tablet 03/01/16 Unknown Rx traMADoL [Ultram 50 MG tab] 50 mg PO Q6HR PRN #10 tablet 03/01/16 Unknown Rx Acetaminophen/Codeine [Tylenol #3] 1 tab PO Q6H PRN #7 tab 04/03/16 Unknown Rx Diclofenac Sodium 75 mg PO BID #14 tablet.dr 04/03/16 Unknown Rx Sulfamethoxazole/Trimethoprim 1 each PO BID #14 tablet 04/03/16 Unknown Rx [Bactrim DS TAB] cephALEXin [Keflex] 500 mg PO Q8HR #21 cap 04/03/16 Unknown Rx Ketorolac [Toradol] 10 mg PO Q6H PRN #20 tablet 09/15/16 Unknown Rx Meloxicam [Mobic] 7.5 mg PO QDAY #5 tablet 02/24/17 Unknown Rx methOCARBAMOL [Robaxin TAB] 500 mg PO TID #15 tab 02/24/17 Unknown Rx Azithromycin [Zithromax Z-HAILY] 250 mg PO DAILY #6 tab 05/14/18 Unknown Rx Benzonatate [Tessalon Perles] 100 mg PO Q8HR PRN #30 capsule 11/01/17 Unknown Rx predniSONE [Deltasone] 40 mg PO QDAY 5 Days #10 tab 11/01/17 Unknown Rx traMADoL [Ultram 50 MG tab] 50 mg PO Q6HR PRN #15 tablet 01/21/18 Unknown Rx HYDROcodone/APAP 5-325 [[employer] 1 each PO Q4HR PRN #12 tablet 12/31/18 Unknown Rx 5/325] Ibuprofen [Motrin 800 MG tab] 800 mg PO Q8HR PRN #15 tablet 12/31/18 Unknown Rx Famotidine [Pepcid] 20 mg PO BID #20 tablet 03/31/19 Unknown Rx diphenhydrAMINE [Benadryl CAP] 25 mg PO Q6HR PRN #25 capsule 03/31/19 Unknown Rx methylPREDNISolone [Medrol 4MG 4 mg PO DAILY #1 tab.ds.pk 03/31/19 Unknown Rx DOSEPAK (21 tabs)] Naproxen [EC-Naproxen] 500 mg PO BID PRN #14 tablet. 03/17/20 Unknown Rx Naproxen [EC-Naproxen] 500 mg PO BID PRN #14 tablet. 09/24/20 Unknown Rx ALBUTEROL NEB's [Proventil 0.083% 2.5 mg IH TID PRN #1 box 10/07/20 Unknown Rx NEBS] Albuterol Mdi (or & Nicu Only) 2 puff IH QID PRN #2 inhalation 10/07/20 Unknown Rx [ProAir HFA Inhaler] Prednisone [predniSONE 10 mg 10 mg PO .TAPER #1 tab.ds.pk 10/07/20 Unknown Rx (6-Day Pack, 21 Tabs)] ED Physical Exam - General Limitations: No Limitations ED Course Vital Signs 10/07/20 10/07/20 10/07/20 07:02 13:19 13:20 Temperature 98.0 F Pulse Rate 112 H 110 H Respiratory 18 20 20 Rate Blood Pressure 132/93 Blood Pressure 180/108 [Right] O2 Sat by Pulse 96 98 98 Oximetry 10/07/20 13:45 Temperature Pulse Rate Respiratory 18 Rate Blood Pressure Blood Pressure [Right] O2 Sat by Pulse Oximetry - Reevaluation(s) Reevaluation #1: 10/07/20 14:48 Patient has been reevaluated by this provider. Lungs have improved. Patient states she feels much better she still has a headache that is lingering. Patient is resting comfortably in no acute distress. ED Medical Decision Making - Lab Data Result diagrams: 10/07/20 07:18 10/07/20 07:18 - Medical Decision Making 40-year-old female patient with history of asthma and tobacco use presents to the emergency department with complaints of subjective fever, headache, body aches, chest pain, cough, and shortness of breath for 3 days. No known sick contacts. Patient has not been tested for COVID-19. No current steroid or antibiotic use. Patient states she used her nebulizer prior to coming to the emergency department this morning. No prior history of hypertension, hyperlipidemia, diabetes. There is a family history of aneurysms. No venous embolism risk factors identified on history. Patient is given albuterol 10 mg inhalation, Atrovent 1 mg inhalation, dexamethasone 10 mg IM and Tylenol 3 2 tablets p.o. Patient is given apple juice. Chest x-ray within normal limits. Discussed with patient I will discharge her home on albuterol inhalation nebs as well as MDI. Prednisone taper. Patient is instructed to follow-up with her primary care provider. She is to continue with her Advair maintenance medication. Critical care attestation.: If time is entered above; I have spent that time in minutes in the direct care of this critically ill patient, excluding procedure time. ED Disposition Clinical Impression: Asthma attack Disposition: DC-01 TO HOME OR SELFCARE Is pt being admited?: No Does the pt Need Aspirin: No Condition: Stable Instructions: Asthma, Adult, [id number] Additional Instructions: Please use your albuterol inhaler and nebulizer treatment as needed for shortness of breath wheezing and coughing. I recommend Zyrtec's 10 mg daily for the next 3 months. Complete your prednisone taper as prescribed. Increase your fluid intake advance your diet as tolerated and follow-up with your primary care provider. Prescriptions: Prednisone [predniSONE 10 mg (6-Day Pack, 21 Tabs)] 10 mg PO .TAPER #1 tab.ds.pk Albuterol Mdi (or & Nicu Only) [ProAir HFA Inhaler] 2 puff IH QID PRN #2 inhalation PRN Reason: Shortness Of Breath ALBUTEROL NEB's [Proventil 0.083% NEBS] 2.5 mg IH TID PRN #1 box PRN Reason: Wheezing Referrals: PRIMARY CARE, [Primary Care Provider] - 3-5 Days Forms: Work/School Release Form(ED)
== END 2020-10-07 14:54 | disposition home or self-care (01) ==
LOC: ED 06:57
DX: J45.909 Unspecified asthma, uncomplicated (principal); F17.200 Nicotine dependence, unspecified, uncomplicated; Z90.49 Acquired absence of other specified parts of digestive tract; Z79.1 Long term (current) use of non-steroidal anti-inflammatories (NSAID); Z79.2 Long term (current) use of antibiotics; Z79.899 Other long term (current) drug therapy; Z91.013 Allergy to seafood
CPT/HCPCS: 36415; 71046; 80053; 81001; 81025; 84484; 85025; 93005; 94640; 96372; 99284; J1100; 94644

== ENCOUNTER 2021-12-27 04:27 | Emergency (ER) | payer SELFPAY ==
[2021-12-27 05:18] VITALS: BP 122/79
--- NOTE | 2021-12-27 06:07 | XRay Report ---
RIGHT KNEE 3 VIEWS INDICATION / CLINICAL INFORMATION: INJURY. COMPARISON: None available. FINDINGS: BONES / JOINT(S): No acute fracture or subluxation. No significant arthritis. SOFT TISSUES: Large joint effusion. ADDITIONAL FINDINGS: None. Signer Name: Jasson Cortes MD Signed: 12/27/2021 6:03 AM Workstation Name: [id number]
[2021-12-27] MEDS ORDERED: dexAMETHasone 20 MG/5 ML VIAL IM ONE (09:53)
[2021-12-27] MEDS ORDERED: HYDROcodone/ACETAMINOPHEN 5-325 MG TAB PO ONE (09:53)
[2021-12-27] MEDS: IBUPROFEN 800 MG TAB PO ONE ×2 (10:04)
--- NOTE | 2021-12-27 10:23 | Emergency Department Report ---
ED Lower Extremity HPI - General Chief Complaint: Extremity Injury, Lower Stated Complaint: KNEE Time Seen by Provider: 12/27/21 09:52 Source: patient Mode of arrival: Ambulatory Limitations: No Limitations - History of Present Illness Initial Comments: Patient 41-year-old female who presents for right anterior knee pain. Patient states she slipped, thu potty and twisted her right knee. It happened last night. She is only partial weightbearing at this time pain is described as 8/10. Patient states moderate swelling there is no laceration abrasion or bleeding. No numbness or tingling. Patient denies other injury. Patient arrived to ED via POV however is nonweightbearing at this time. MD Complaint: knee injury - Related Data Previous Rx's Medication Instructions Recorded Last Taken Type Albuterol Sulfate [Proventil HFA] 1 - 2 puff IH Q4H PRN #2 hfa.aer.ad 09/08/14 Unknown Rx Fluticasone/Salmeterol [Advair 1 - 2 puff IH BID #1 disk.w.dev 02/23/15 Unknown Rx Diskus 250-50 mcg] Ciprofloxacin HCl [Ciprofloxacin 500 mg PO Q12HR #14 tab 12/15/15 Unknown Rx TAB] traMADoL [Ultram] 50 mg PO Q6HR PRN #14 tablet 12/15/15 Unknown Rx Fluconazole (Nf) [Diflucan TAB] 150 mg PO ONCE #1 tablet 12/16/15 Unknown Rx LORazepam [Ativan] 1 mg PO Q8HR PRN #6 tablet 03/01/16 Unknown Rx traMADoL [Ultram 50 MG tab] 50 mg PO Q6HR PRN #10 tablet 03/01/16 Unknown Rx Acetaminophen/Codeine [Tylenol #3] 1 tab PO Q6H PRN #7 tab 04/03/16 Unknown Rx Diclofenac Sodium 75 mg PO BID #14 tablet.dr 04/03/16 Unknown Rx Sulfamethoxazole/Trimethoprim 1 each PO BID #14 tablet 04/03/16 Unknown Rx [Bactrim DS TAB] cephALEXin [Keflex] 500 mg PO Q8HR #21 cap 04/03/16 Unknown Rx Ketorolac [Toradol] 10 mg PO Q6H PRN #20 tablet 09/15/16 Unknown Rx Meloxicam [Mobic] 7.5 mg PO QDAY #5 tablet 02/24/17 Unknown Rx methOCARBAMOL [Robaxin TAB] 500 mg PO TID #15 tab 02/24/17 Unknown Rx Azithromycin [Zithromax Z-HAILY] 250 mg PO DAILY #6 tab 11/01/17 Unknown Rx Benzonatate [Tessalon Perles] 100 mg PO Q8HR PRN #30 capsule 11/01/17 Unknown Rx predniSONE [Deltasone] 40 mg PO QDAY 5 Days #10 tab 11/01/17 Unknown Rx traMADoL [Ultram 50 MG tab] 50 mg PO Q6HR PRN #15 tablet 01/21/18 Unknown Rx HYDROcodone/APAP 5-325 [[place] 1 each PO Q4HR PRN #12 tablet 12/31/18 Unknown Rx 5/325] Ibuprofen [Motrin 800 MG tab] 800 mg PO Q8HR PRN #15 tablet 12/31/18 Unknown Rx Famotidine [Pepcid] 20 mg PO BID #20 tablet 03/31/19 Unknown Rx diphenhydrAMINE [Benadryl CAP] 25 mg PO Q6HR PRN #25 capsule 03/31/19 Unknown Rx methylPREDNISolone [Medrol 4MG 4 mg PO DAILY #1 tab.ds.pk 03/31/19 Unknown Rx DOSEPAK (21 tabs)] Naproxen [EC-Naproxen] 500 mg PO BID PRN #14 tablet. 03/17/20 Unknown Rx Naproxen [EC-Naproxen] 500 mg PO BID PRN #14 tablet. 09/24/20 Unknown Rx ALBUTEROL NEB's [Proventil 0.083% 2.5 mg IH TID PRN #1 box 10/07/20 Unknown Rx NEBS] Albuterol Mdi (or & Nicu Only) 2 puff IH QID PRN #2 inhalation 10/07/20 Unknown Rx [ProAir HFA Inhaler] Prednisone [predniSONE 10 mg 10 mg PO .TAPER #1 tab.ds.pk 10/07/20 Unknown Rx (6-Day Pack, 21 Tabs)] Acetaminophen/Codeine [Tylenol 1 tab PO Q6H PRN #12 tab 12/27/21 Unknown Rx /Codeine # 3 tab] Naproxen 500 mg PO BID #60 tab 12/27/21 Unknown Rx predniSONE [Deltasone] 40 mg PO QDAY 5 Days #10 tab 12/27/21 Unknown Rx Allergies Allergy/AdvReac Type Severity Reaction Status Date / Time shellfish derived Allergy Swelling Verified 10/06/20 17:32 ED Review of Systems ROS: Stated complaint: KNEE Other details as noted in HPI Constitutional: denies: chills, fever Eyes: denies: eye pain, eye discharge, vision change ENT: denies: ear pain, throat pain Respiratory: denies: cough, shortness of breath, wheezing Cardiovascular: denies: chest pain, palpitations Endocrine: no symptoms reported Gastrointestinal: denies: abdominal pain, nausea, vomiting, diarrhea Genitourinary: denies: urgency, dysuria, discharge Musculoskeletal: joint swelling (Right knee pain right knee), other Skin: denies: rash, lesions Neurological: denies: headache, weakness, paresthesias Psychiatric: denies: anxiety, depression Hematological/Lymphatic: denies: easy bleeding, easy bruising ED Past Medical Hx - Past Medical History Hx Congestive Heart Failure: No Hx Diabetes: No Hx Asthma: Yes Hx COPD: No - Surgical History Hx Appendectomy: Yes - Social History Smoking Status: Current Some Day Smoker - Medications Home Medications: Home Medications Medication Instructions Recorded Confirmed Last Taken Type Albuterol Sulfate [Proventil HFA] 1 - 2 puff IH Q4H PRN #2 hfa.aer.ad 09/08/14 12/15/15 Unknown Rx Fluticasone/Salmeterol [Advair 1 - 2 puff IH BID #1 disk.w.dev 02/23/15 12/15/15 Unknown Rx Diskus 250-50 mcg] Ciprofloxacin HCl [Ciprofloxacin 500 mg PO Q12HR #14 tab 12/15/15 Unknown Rx TAB] traMADoL [Ultram] 50 mg PO Q6HR PRN #14 tablet 12/15/15 Unknown Rx Fluconazole (Nf) [Diflucan TAB] 150 mg PO ONCE #1 tablet 12/16/15 Unknown Rx LORazepam [Ativan] 1 mg PO Q8HR PRN #6 tablet 03/01/16 Unknown Rx traMADoL [Ultram 50 MG tab] 50 mg PO Q6HR PRN #10 tablet 03/01/16 Unknown Rx Acetaminophen/Codeine [Tylenol #3] 1 tab PO Q6H PRN #7 tab 04/03/16 Unknown Rx Diclofenac Sodium 75 mg PO BID #14 tablet.dr 04/03/16 Unknown Rx Sulfamethoxazole/Trimethoprim 1 each PO BID #14 tablet 04/03/16 Unknown Rx [Bactrim DS TAB] cephALEXin [Keflex] 500 mg PO Q8HR #21 cap 04/03/16 Unknown Rx Ketorolac [Toradol] 10 mg PO Q6H PRN #20 tablet 09/15/16 Unknown Rx Meloxicam [Mobic] 7.5 mg PO QDAY #5 tablet 02/24/17 Unknown Rx methOCARBAMOL [Robaxin TAB] 500 mg PO TID #15 tab 02/24/17 Unknown Rx Azithromycin [Zithromax Z-HAILY] 250 mg PO DAILY #6 tab 11/01/17 Unknown Rx Benzonatate [Tessalon Perles] 100 mg PO Q8HR PRN #30 capsule 11/01/17 Unknown Rx predniSONE [Deltasone] 40 mg PO QDAY 5 Days #10 tab 11/01/17 Unknown Rx traMADoL [Ultram 50 MG tab] 50 mg PO Q6HR PRN #15 tablet 01/21/18 Unknown Rx HYDROcodone/APAP 5-325 [[place] 1 each PO Q4HR PRN #12 tablet 12/31/18 Unknown Rx 5/325] Ibuprofen [Motrin 800 MG tab] 800 mg PO Q8HR PRN #15 tablet 12/31/18 Unknown Rx Famotidine [Pepcid] 20 mg PO BID #20 tablet 03/31/19 Unknown Rx diphenhydrAMINE [Benadryl CAP] 25 mg PO Q6HR PRN #25 capsule 03/31/19 Unknown Rx methylPREDNISolone [Medrol 4MG 4 mg PO DAILY #1 tab.ds.pk 03/31/19 Unknown Rx DOSEPAK (21 tabs)] Naproxen [EC-Naproxen] 500 mg PO BID PRN #14 tablet. 03/17/20 Unknown Rx Naproxen [EC-Naproxen] 500 mg PO BID PRN #14 tablet. 09/24/20 Unknown Rx ALBUTEROL NEB's [Proventil 0.083% 2.5 mg IH TID PRN #1 box 10/07/20 Unknown Rx NEBS] Albuterol Mdi (or & Nicu Only) 2 puff IH QID PRN #2 inhalation 10/07/20 Unknown Rx [ProAir HFA Inhaler] Prednisone [predniSONE 10 mg 10 mg PO .TAPER #1 tab.ds.pk 10/07/20 Unknown Rx (6-Day Pack, 21 Tabs)] Acetaminophen/Codeine [Tylenol 1 tab PO Q6H PRN #12 tab 12/27/21 Unknown Rx /Codeine # 3 tab] Naproxen 500 mg PO BID #60 tab 12/27/21 Unknown Rx predniSONE [Deltasone] 40 mg PO QDAY 5 Days #10 tab 12/27/21 Unknown Rx ED Physical Exam - General Limitations: No Limitations General appearance: alert, in no apparent distress - Head Head exam: Present: normocephalic, normal inspection - Eye Eye exam: Present: EOMI Pupils: Present: normal accommodation - ENT ENT exam: Present: mucous membranes moist - Neck Neck exam: Present: normal inspection, full ROM. Absent: tenderness - Respiratory Respiratory exam: Present: normal lung sounds bilaterally. Absent: respiratory distress, wheezes - Cardiovascular Cardiovascular Exam: Present: regular rate, normal rhythm, normal heart sounds. Absent: systolic murmur, diastolic murmur, rubs, gallop - GI/Abdominal GI/Abdominal exam: Present: soft, normal bowel sounds. Absent: distended, tenderness - Rectal Rectal exam: Present: deferred - Extremities Exam Extremities exam: Present: full ROM - Back Exam Back exam: Present: normal inspection, full ROM. Absent: CVA tenderness (R), CVA tenderness (L) - Neurological Exam Neurological exam: Present: alert, oriented X3, CN II-XII intact, reflexes normal. Absent: motor sensory deficit - Expanded Neurological Exam Expanded Patient oriented to: Present: person, place, time Speech: Present: fluid speech Motor strength exam: RUE: 5, LUE: 5, RLE: 5, LLE: 5 DTR: knee (R): 1+, knee (L): 1+, ankle (R): 1+, ankle (L): 1+ Best Eye Response (Lc): (4) open spontaneously Best Motor Response (Lc): (6) obeys commands Best Verbal Response ([place]olph): (5) oriented Lc Total: 15 - Psychiatric Psychiatric exam: Present: normal affect, normal mood - Skin Skin exam: Present: warm, dry, intact, normal color. Absent: rash ED Course Vital Signs 12/27/21 04:46 Temperature 98.6 F Pulse Rate 94 H Respiratory 18 Rate Blood Pressure 122/79 O2 Sat by Pulse 98 Oximetry ED Lower Extremity MDM - Radiology Data Radiology results: report reviewed, image reviewed RIGHT KNEE 3 VIEWS INDICATION / CLINICAL INFORMATION: INJURY. COMPARISON: None available. FINDINGS: BONES / JOINT(S): No acute fracture or subluxation. No significant arthritis. SOFT TISSUES: Large joint effusion. ADDITIONAL FINDINGS: None. Signer Name: Jasson Corets MD Signed: 12/27/2021 6:03 AM Workstation Name: [email or web address] Transcribed By: ES Dictated By: Jasson Cortes MD Electronically Authenticated By: Jasson Cortes MD Signed Date/Time: 12/27/21602 DD/ 0 TD/TT: - Medical Decision Making No fracture no subluxation no dislocation noted moderate sized effusion anterior. Plan knee immobilizer, crutches, RICE therapy follow-up with orthopedics in 2 to 3 days. Patient verbalized agreement understanding of same. Patient completed crutch teaching demonstrated safe use of same. Patient DC'd in stable condition at this time. Critical care attestation.: If time is entered above; I have spent that time in minutes in the direct care of this critically ill patient, excluding procedure time. ED Disposition Clinical Impression: Knee effusion, right Sprain of right knee Qualifiers: Encounter type: initial encounter Involved ligament of knee: unspecified ligament Qualified Code(s): S83.91XA - Sprain of unspecified site of right knee, initial encounter Disposition: HOME / SELF CARE / HOMELESS Is pt being admited?: No Does the pt Need Aspirin: No Condition: Stable Instructions: Knee Effusion, [id number], Knee Sprain, Adult, [id number] Additional Instructions: Take medications as prescribed, follow-up with orthopedics in 2 to 3 days. As directed. Use crutches and knee immobilizer as directed. Return to emergency department should symptoms worsen. Prescriptions: predniSONE [Deltasone] 40 mg PO QDAY 5 Days #10 tab Naproxen 500 mg PO BID #60 tab Acetaminophen/Codeine [Tylenol /Codeine # 3 tab] 1 tab PO Q6H PRN #12 tab PRN Reason: Pain Referrals: SELINA CRAWFORD MD [Staff Physician] - 3-5 Days Forms: Work/School Release Form(ED) Time of Disposition: 10:31
== END 2021-12-27 10:41 | disposition home or self-care (01) ==
LOC: ED 04:27
DX: S83.91XA Sprain of unspecified site of right knee, initial encounter (principal); M25.461 Effusion, right knee; J45.909 Unspecified asthma, uncomplicated; Z90.89 Acquired absence of other organs; F17.290 Nicotine dependence, other tobacco product, uncomplicated; Z91.013 Allergy to seafood; W50.2XXA Accidental twist by another person, initial encounter; Y93.89 Activity, other specified; Y92.89 Other specified places as the place of occurrence of the external cause; Y99.8 Other external cause status
CPT/HCPCS: 29505; 73562; 96372; 99283; J1100